=== PATIENT | female | born 1990 | race Caucasian/White ===

== ENCOUNTER 2021-10-27 05:15 | Emergency (ER) | payer OTHER ==
[~2021-10-27] VITALS: Ht 170.2 cm; Wt 59.1 kg
[2021-10-27 05:51] LABS: BASOPHILS # (AUTO) 0.1 X10'3 (0-0.2); BASOPHILS % (AUTO) 0.5 % (0-1); EOSINOPHILS % (AUTO) 0.1 % (0-6); HEMATOCRIT 45.6 % (35.0-45.0); HEMOGLOBIN 15.6 g/dl (12.0-16.0); LYMPHOCYTES # (AUTO) 1.4 X10'3 (1.1-4.8); LYMPHOCYTES % (AUTO) 9.7 % (21-51); MEAN CORPUSCULAR HEMOGLOBIN 31.9 PG (27.0-31.0); MEAN CORPUSCULAR HGB CONC 34.1 g/dL (33.0-36.5); MEAN CORPUSCULAR VOLUME 93.5 FL (78-98); MEAN PLATELET VOLUME 9.8 FL (7.4-10.4); MONOCYTES # (AUTO) 1.2 X10'3 (0-0.9); MONOCYTES % (AUTO) 8.5 % (2-12); NEUTROPHILS # (AUTO) 11.4 X10'3 (1.8-7.7); NEUTROPHILS % (AUTO) 81.2 % (42-75); PLATELET COUNT 280 X10'3 (140-440); RED BLOOD COUNT 4.87 X10'6 (4.20-5.60); RED CELL DISTRIBUTION WIDTH 15.2 % (11.5-14.5)
[2021-10-27 06:10] LABS: ALANINE AMINOTRANSFERASE 26 U/L (12-78); ALBUMIN 4.7 G/DL (3.4-5.0); ALBUMIN/GLOBULIN RATIO 1.2 (1.1-1.5); ALKALINE PHOSPHATASE 66 IU/L (46-116); ANION GAP 21 (8-16); ASPARTATE AMINO TRANSFERASE 32 U/L (10-37); BILIRUBIN,DIRECT 0.2 MG/DL (0-0.3); BILIRUBIN,TOTAL 0.7 MG/DL (0.1-1.0); BLOOD UREA NITROGEN 24 MG/DL (7-18); BUN/CREATININE RATIO 11.8 (6.6-38.0); CHLORIDE 97 MMOL/L (99-107); CREATININE 2.04 MG/DL (0.40-0.90); GLUCOSE 128 MG/DL (70-104); LIPASE 145 U/L (73-393); POTASSIUM 3.5 MMOL/L (3.5-5.1); SODIUM 134 MMOL/L (135-145); TOTAL CARBON DIOXIDE 16.2 MMOL/L (24-32); TOTAL PROTEIN 8.5 G/DL (6.4-8.2); eGFR 28 ML/MIN
[2021-10-27 06:19] LABS: CALCIUM 9.6 MG/DL (8.5-10.1)
--- NOTE | 2021-10-27 06:44 | NUR ---
pt requesting pain meds d/t abd pain. pt it restless in bed, appears uncomfortable. dr. triplett is requesting urine prior to giving pain meds to pt. pt informed.
[2021-10-27] MEDS ORDERED: normal saline 1000ML IV soln IV ONE (06:45)
--- NOTE | 2021-10-27 06:51 | NUR ---
pt up to bsc independently, unable to pee at this time d/t dehydration. requesting pain meds still, dr. triplett made aware that pt is in pain. will not order pain meds until pt has provided urine.
[2021-10-27 07:07] LABS: MAGNESIUM 2.3 MG/DL (1.5-2.4)
[2021-10-27 07:17] LABS: ETHANOL < 0.010 GM/DL (0.0-0.010)
[2021-10-27] MEDS ORDERED: normal saline 1000ML IV soln IVB ONE (07:20)
[2021-10-27] MEDS ORDERED: morphine 2 MG/ML inj. syringe IV ONE ×2 (07:35→11:35)
[2021-10-27 07:40] LABS: CLARITY,URINE CLOUDY (Clear); COLOR,URINE YELLOW (Yellow); GLUCOSE, URINE NEGATIVE (Neg); KETONES,URINE TRACE mg/dl (Neg); LEUKOCYTE ESTERASE ,URINE NEGATIVE (Neg); NITRITES, URINE NEGATIVE (Neg); OCCULT BLOOD,URINE NEGATIVE (Neg); PROTEIN,URINE 100 mg/dl (Neg); UROBILINOGEN,URINE 0.2 E.U/dL (0.2-1.0)
[2021-10-27 07:41] LABS: URINE HCG NEGATIVE (NEG)
[2021-10-27 07:47] LABS: UA COLLECTION TYPE CLN CATCH MIDSTREAM
[2021-10-27 07:51] LABS: BACTERIA,URINE FEW /HPF (Neg); MUCUS STRANDS FEW /LPF (Neg); RBC,URINE NONE SEEN /HPF (0-2); SQUAMOUS EPITHELIAL CELL,UR MODERATE /LPF (FEW)
[2021-10-27 07:52] LABS: CAL OXALATE CRYSTALS FEW /HPF (NEGATIVE); TRANSITIONAL EPI CELLS,URINE FEW /HPF
[2021-10-27 07:53] LABS: URINE AMPHETAMINE SCREEN NEGATIVE (Neg); URINE BARBITUATE SCREEN NEGATIVE (Neg); URINE BENZODIAZEPINES SCREEN NEGATIVE (Neg); URINE CANNABINOID SCREEN POSITIVE (Neg); URINE COCAINE SCREEN NEGATIVE (Neg); URINE METHADONE SCREEN NEGATIVE (Neg); URINE OPIATE SCREEN NEGATIVE (Neg); URINE PHENCYCLIDINE SCREEN NEGATIVE (Neg)
--- NOTE | 2021-10-27 08:00 | NUR ---
pt to CT
--- NOTE | 2021-10-27 08:12 | NUR ---
returned from CT
[2021-10-27] MEDS ORDERED: metroNIDAZOLE-Flagyl 500mg/NS 100 ML IV ONE (09:55)
[2021-10-27] MEDS ORDERED: piperacillin/tazo 3.375gm/50ml 50 ML IV ONE (09:55)
--- NOTE | 2021-10-27 10:15 | NUR ---
dr. triplett at bedside for pelvic exam with RN as oncology specialist
--- NOTE | 2021-10-27 11:00 | NUR ---
Us at bedside
--- NOTE | 2021-10-27 11:45 | NUR ---
pt medicated for abd pain 04/21.
[2021-10-27 11:58] LABS: ALANINE AMINOTRANSFERASE 26 U/L (12-78); ALBUMIN 3.8 G/DL (3.4-5.0); ALBUMIN/GLOBULIN RATIO 1.1 (1.1-1.5); ALKALINE PHOSPHATASE 52 IU/L (46-116); ANION GAP 13 (8-16); ASPARTATE AMINO TRANSFERASE 40 U/L (10-37); BILIRUBIN,TOTAL 0.5 MG/DL (0.1-1.0); BLOOD UREA NITROGEN 19 MG/DL (7-18); BUN/CREATININE RATIO 17.1 (6.6-38.0); CALCIUM 7.9 MG/DL (8.5-10.1); CHLORIDE 105 MMOL/L (99-107); CREATININE 1.11 MG/DL (0.40-0.90); GLUCOSE 98 MG/DL (70-104); LIPASE 108 U/L (73-393); POTASSIUM 3.5 MMOL/L (3.5-5.1); SODIUM 139 MMOL/L (135-145); TOTAL CARBON DIOXIDE 21.3 MMOL/L (24-32); TOTAL PROTEIN 7.3 G/DL (6.4-8.2); eGFR 57 ML/MIN
[2021-10-27] MEDS ORDERED: METR-159 PO (12:44)
[2021-10-27 13:53] VITALS: BP 102/63
== END 2021-10-27 13:57 | disposition home or self-care (01) ==
LOC: ER 05:16
DX: R10.84 Generalized abdominal pain (principal); N17.9 Acute kidney failure, unspecified; K59.00 Constipation, unspecified; F12.90 Cannabis use, unspecified, uncomplicated; Z72.89 Other problems related to lifestyle; Z79.2 Long term (current) use of antibiotics
CPT/HCPCS: 36415; 74176; 80048; 80053; 80076; 80305; 80320; 81001; 81025; 83605; 83690; 83735; 84145; 85025; 87040; 93975; 96365; 96367; 96375; 96376; 99285; J2270; J2543; J3490; J7030

== ENCOUNTER 2022-01-01 19:24 | Emergency (ER) | payer MEDICAID ==
[~2022-01-01] VITALS: Ht 170.2 cm; Wt 52.7 kg
[2022-01-01 20:17] LABS: BASOPHILS # (AUTO) 0.1 X10'3 (0-0.2); EOSINOPHILS # (AUTO) 0.1 X10'3 (0-0.9); EOSINOPHILS % (AUTO) 1.7 % (0-6); HEMATOCRIT 42.2 % (35.0-45.0); HEMOGLOBIN 14.1 g/dl (12.0-16.0); LYMPHOCYTES # (AUTO) 1.9 X10'3 (1.1-4.8); LYMPHOCYTES % (AUTO) 32.6 % (21-51); MEAN CORPUSCULAR HEMOGLOBIN 30.5 PG (27.0-31.0); MEAN CORPUSCULAR HGB CONC 33.4 g/dL (33.0-36.5); MEAN CORPUSCULAR VOLUME 91.6 FL (78-98); MEAN PLATELET VOLUME 9.5 FL (7.4-10.4); MONOCYTES # (AUTO) 0.6 X10'3 (0-0.9); MONOCYTES % (AUTO) 10.9 % (2-12); NEUTROPHILS # (AUTO) 3.1 X10'3 (1.8-7.7); NEUTROPHILS % (AUTO) 53.8 % (42-75); PLATELET COUNT 232 X10'3 (140-440); RED BLOOD COUNT 4.61 X10'6 (4.20-5.60); RED CELL DISTRIBUTION WIDTH 15.9 % (11.5-14.5); WHITE BLOOD COUNT 5.8 X10'3 (4.5-11.0)
[2022-01-01 20:20] LABS: CLARITY,URINE CLEAR (Clear); GLUCOSE, URINE NEGATIVE (Neg); KETONES,URINE 15 mg/dl (Neg); LEUKOCYTE ESTERASE ,URINE NEGATIVE (Neg); NITRITES, URINE NEGATIVE (Neg); OCCULT BLOOD,URINE NEGATIVE (Neg); PH,URINE 5.5 (4.8-8.0); PROTEIN,URINE 30 mg/dl (Neg); UROBILINOGEN,URINE 0.2 E.U/dL (0.2-1.0)
[2022-01-01 20:21] LABS: COLOR,URINE DARK YELLOW (Yellow); UA COLLECTION TYPE CLN CATCH MIDSTREAM
[2022-01-01 20:27] LABS: URINE HCG NEGATIVE (NEG)
[2022-01-01 20:30] LABS: ALANINE AMINOTRANSFERASE 23 U/L (12-78); ALBUMIN 4.3 G/DL (3.4-5.0); ALBUMIN/GLOBULIN RATIO 1.2 (1.1-1.5); ALKALINE PHOSPHATASE 60 IU/L (46-116); ANION GAP 16 (8-16); ASPARTATE AMINO TRANSFERASE 20 U/L (10-37); BILIRUBIN,TOTAL 0.8 MG/DL (0.1-1.0); BLOOD UREA NITROGEN 9 MG/DL (7-18); BUN/CREATININE RATIO 11.1 (6.6-38.0); CALCIUM 9.5 MG/DL (8.5-10.1); CHLORIDE 102 MMOL/L (99-107); CREATININE 0.81 MG/DL (0.40-0.90); GLUCOSE 82 MG/DL (70-104); POTASSIUM 3.6 MMOL/L (3.5-5.1); SODIUM 142 MMOL/L (135-145); TOTAL CARBON DIOXIDE 24.1 MMOL/L (24-32); TOTAL PROTEIN 7.8 G/DL (6.4-8.2); eGFR 81 ML/MIN
[2022-01-01 20:32] LABS: BACTERIA,URINE 1+ /HPF (Neg); MUCUS STRANDS FEW /LPF (Neg); RBC,URINE 0-2 /HPF (0-2); SQUAMOUS EPITHELIAL CELL,UR FEW /LPF (FEW); WBC,URINE 0-4 /HPF (0-4)
[2022-01-01 20:33] LABS: HYALINE CASTS 0-3 /LPF (NEGATIVE)
--- NOTE | 2022-01-01 21:50 | NUR ---
PATIENT DENIES HOME MEDICATIONS.
[2022-01-01] MEDS ORDERED: HYDROcodone/acetaminophen 5mg/325mg tablet PO ONE (22:25)
[2022-01-01] MEDS ORDERED: ondansetron 4mg rapidly disintigrating tab PO ONE (22:25)
[2022-01-02 00:30] VITALS: BP 12/75
== END 2022-01-02 00:35 | disposition home or self-care (01) ==
LOC: ER 19:25
DX: K57.90 Diverticulosis of intestine, part unspecified, without perforation or abscess without bleeding (principal); R11.2 Nausea with vomiting, unspecified; R10.84 Generalized abdominal pain; F32.A Depression, unspecified; F12.90 Cannabis use, unspecified, uncomplicated; Z72.89 Other problems related to lifestyle
CPT/HCPCS: 36415; 74176; 80053; 81001; 81025; 85025; 99284

== ENCOUNTER 2022-02-18 07:34 | Emergency (ER) | payer OTHER, MEDICAID ==
[~2022-02-18] VITALS: Ht 170.2 cm; Wt 50.0 kg
[2022-02-18] MEDS ORDERED: ringers solution, lacted 1,000 ML IV ONE (08:00)
[2022-02-18] MEDS ORDERED: morphine 4 MG/ML inj SYRINge IV ONE (08:00)
[2022-02-18] MEDS ORDERED: ondansetron/PF 4mg/2ml inj IV ONE (08:00)
[2022-02-18 08:07] LABS: URINE HCG NEGATIVE (NEG)
[2022-02-18 08:12] LABS: BASOPHILS # (AUTO) 0.1 X10'3 (0-0.2); BASOPHILS % (AUTO) 0.7 % (0-1); EOSINOPHILS # (AUTO) 0.1 X10'3 (0-0.9); EOSINOPHILS % (AUTO) 1.2 % (0-6); HEMATOCRIT 36.1 % (35.0-45.0); HEMOGLOBIN 11.8 g/dl (12.0-16.0); LYMPHOCYTES # (AUTO) 1.3 X10'3 (1.1-4.8); LYMPHOCYTES % (AUTO) 13.5 % (21-51); MEAN CORPUSCULAR HEMOGLOBIN 30.1 PG (27.0-31.0); MEAN CORPUSCULAR HGB CONC 32.7 g/dL (33.0-36.5); MEAN CORPUSCULAR VOLUME 92.1 FL (78-98); MEAN PLATELET VOLUME 9.4 FL (7.4-10.4); MONOCYTES # (AUTO) 0.9 X10'3 (0-0.9); NEUTROPHILS # (AUTO) 7.2 X10'3 (1.8-7.7); NEUTROPHILS % (AUTO) 75.6 % (42-75); PLATELET COUNT 251 X10'3 (140-440); RED BLOOD COUNT 3.91 X10'6 (4.20-5.60); RED CELL DISTRIBUTION WIDTH 17.6 % (11.5-14.5); WHITE BLOOD COUNT 9.5 X10'3 (4.5-11.0)
[2022-02-18 08:19] LABS: ALANINE AMINOTRANSFERASE 21 U/L (12-78); ALBUMIN/GLOBULIN RATIO 1.3 (1.1-1.5); ALKALINE PHOSPHATASE 50 IU/L (46-116); AMYLASE 78 U/L (25-115); ANION GAP 13 (8-16); ASPARTATE AMINO TRANSFERASE 24 U/L (10-37); BILIRUBIN,TOTAL 0.4 MG/DL (0.1-1.0); BLOOD UREA NITROGEN 9 MG/DL (7-18); BUN/CREATININE RATIO 12.5 (6.6-38.0); CALCIUM 8.4 MG/DL (8.5-10.1); CHLORIDE 109 MMOL/L (99-107); CREATININE 0.72 MG/DL (0.40-0.90); GLUCOSE 106 MG/DL (70-104); LIPASE 211 U/L (73-393); POTASSIUM 3.2 MMOL/L (3.5-5.1); SODIUM 146 MMOL/L (135-145); TOTAL CARBON DIOXIDE 24.4 MMOL/L (24-32); TOTAL PROTEIN 7.1 G/DL (6.4-8.2); eGFR > 90 ML/MIN
[2022-02-18] MEDS ORDERED: metoclopramide 5 mg/ml inj IV ONE (09:00)
[2022-02-18 09:02] LABS: CLARITY,URINE CLOUDY (Clear); COLOR,URINE YELLOW (Yellow); GLUCOSE, URINE NEGATIVE (Neg); KETONES,URINE 15 mg/dl (Neg); LEUKOCYTE ESTERASE ,URINE NEGATIVE (Neg); NITRITES, URINE NEGATIVE (Neg); OCCULT BLOOD,URINE LARGE (Neg); PH,URINE 6.5 (4.8-8.0); PROTEIN,URINE TRACE mg/dl (Neg); UROBILINOGEN,URINE 0.2 E.U/dL (0.2-1.0)
[2022-02-18] MEDS ORDERED: LORazepam 2 mg/ml vial IV ONE (09:05)
[2022-02-18 09:07] LABS: UA COLLECTION TYPE CLN CATCH MIDSTREAM
[2022-02-18 09:15] LABS: MUCUS STRANDS MODERATE /LPF (Neg); RBC,URINE 50-100 /HPF (0-2); SQUAMOUS EPITHELIAL CELL,UR MODERATE /LPF (FEW)
[2022-02-18 09:16] LABS: WBC,URINE 0-4 /HPF (0-4)
[2022-02-18 09:18] LABS: BACTERIA,URINE 1+ /HPF (Neg)
[2022-02-18 09:19] LABS: AMORPHOUS PHOSPHATES 2+
--- NOTE | 2022-02-18 09:42 | NUR ---
Call to CT at this time to inform them Patient is now more comfortable after medication administration (see EMAR).
--- NOTE | 2022-02-18 10:04 | NUR ---
TO CT AT THIS TIME.
[2022-02-18] MEDS ORDERED: MELO-102 PO (11:36)
[2022-02-18 11:47] VITALS: BP 111/69
[2022-02-19] MEDS ORDERED: iohexol 300mg/ml 100ml inj. ONE (10:00)
== END 2022-02-18 11:49 | disposition home or self-care (01) ==
LOC: ER 07:35
DX: N94.89 Other specified conditions associated with female genital organs and menstrual cycle (principal); R10.84 Generalized abdominal pain; R11.0 Nausea; F32.A Depression, unspecified; F12.90 Cannabis use, unspecified, uncomplicated; Z72.89 Other problems related to lifestyle; Z79.899 Other long term (current) drug therapy
CPT/HCPCS: 36415; 74177; 80053; 81001; 81025; 82150; 83690; 85025; 96361; 96374; 96375; 99285; J2060; J2270; J2405; J2765; J7120; Q9967

== ENCOUNTER 2022-03-22 07:48 | Emergency (ER) | payer MEDICAID, OTHER ==
[~2022-03-22] VITALS: Ht 170.2 cm; Wt 52.7 kg
[~2022-03-22 07:48] MED LIST: MELO-102 PO
[2022-03-22 08:27] LABS: BASOPHILS # (AUTO) 0.1 X10'3 (0-0.2); BASOPHILS % (AUTO) 0.7 % (0-1); EOSINOPHILS # (AUTO) 0.1 X10'3 (0-0.9); EOSINOPHILS % (AUTO) 1.2 % (0-6); HEMATOCRIT 38.5 % (35.0-45.0); HEMOGLOBIN 12.7 g/dl (12.0-16.0); LYMPHOCYTES # (AUTO) 1.8 X10'3 (1.1-4.8); MEAN CORPUSCULAR HEMOGLOBIN 30.5 PG (27.0-31.0); MEAN CORPUSCULAR VOLUME 92.7 FL (78-98); MEAN PLATELET VOLUME 8.8 FL (7.4-10.4); MONOCYTES # (AUTO) 0.4 X10'3 (0-0.9); MONOCYTES % (AUTO) 5.2 % (2-12); NEUTROPHILS # (AUTO) 5.8 X10'3 (1.8-7.7); NEUTROPHILS % (AUTO) 70.9 % (42-75); PLATELET COUNT 269 X10'3 (140-440); RED BLOOD COUNT 4.15 X10'6 (4.20-5.60); RED CELL DISTRIBUTION WIDTH 17.3 % (11.5-14.5); WHITE BLOOD COUNT 8.2 X10'3 (4.5-11.0)
[2022-03-22] MEDS ORDERED: normal saline 1000ML IV soln IVB ONE ×2 (08:40→11:10)
[2022-03-22] MEDS ORDERED: metoclopramide 5 mg/ml inj IV ONE (08:40)
[2022-03-22] MEDS ORDERED: diphenhydrAMINE 50 mg/ml inj IV ONE (08:40)
[2022-03-22 08:42] LABS: ALANINE AMINOTRANSFERASE 19 U/L (12-78); ALBUMIN 3.9 G/DL (3.4-5.0); ALBUMIN/GLOBULIN RATIO 1.2 (1.1-1.5); ALKALINE PHOSPHATASE 49 IU/L (46-116); ANION GAP 9 (8-16); ASPARTATE AMINO TRANSFERASE 21 U/L (10-37); BILIRUBIN,TOTAL 0.4 MG/DL (0.1-1.0); BLOOD UREA NITROGEN 10 MG/DL (7-18); BUN/CREATININE RATIO 12.3 (6.6-38.0); CALCIUM 8.3 MG/DL (8.5-10.1); CHLORIDE 106 MMOL/L (99-107); CREATININE 0.81 MG/DL (0.40-0.90); GLUCOSE 107 MG/DL (70-104); LIPASE 403 U/L (73-393); SODIUM 142 MMOL/L (135-145); TOTAL PROTEIN 7.2 G/DL (6.4-8.2); eGFR 81 ML/MIN
[2022-03-22] MEDS ORDERED: ketorolac tromethamine 15mg/ml inj. IV ONE (08:50)
[2022-03-22] MEDS ORDERED: morphine 4 MG/ML inj SYRINge IV ONE (08:50)
[2022-03-22 09:00] LABS: ETHANOL 0.201 GM/DL (0.0-0.010)
[2022-03-22] MEDS ORDERED: haloperidol lactate 5mg/ml inj IV ONE (10:00)
[2022-03-22] MEDS ORDERED: POTASSIUM BICARB 20meq eff tab 20 MEQ TABLET.EFF PO SCH (13:05)
[2022-03-22 13:11] LABS: URINE HCG NEGATIVE (NEG)
[2022-03-22 13:12] LABS: CLARITY,URINE CLEAR (Clear); COLOR,URINE YELLOW (Yellow); GLUCOSE, URINE NEGATIVE (Neg); KETONES,URINE TRACE mg/dl (Neg); LEUKOCYTE ESTERASE ,URINE NEGATIVE (Neg); NITRITES, URINE NEGATIVE (Neg); OCCULT BLOOD,URINE NEGATIVE (Neg); PH,URINE 6.5 (4.8-8.0); PROTEIN,URINE NEGATIVE (Neg); UROBILINOGEN,URINE 0.2 E.U/dL (0.2-1.0)
[2022-03-22 13:13] LABS: UA COLLECTION TYPE CLN CATCH MIDSTREAM
[2022-03-22 13:29] LABS: URINE AMPHETAMINE SCREEN NEGATIVE (Neg); URINE BARBITUATE SCREEN NEGATIVE (Neg); URINE BENZODIAZEPINES SCREEN NEGATIVE (Neg); URINE CANNABINOID SCREEN POSITIVE (Neg); URINE COCAINE SCREEN NEGATIVE (Neg); URINE METHADONE SCREEN NEGATIVE (Neg); URINE OPIATE SCREEN POSITIVE (Neg); URINE PHENCYCLIDINE SCREEN NEGATIVE (Neg)
[2022-03-22 13:30] VITALS: BP 109/83
--- NOTE | 2022-03-22 13:40 | NUR ---
PT PROVIDED WITH WIPES, STATES SHE HAD A BM AND NEEDS TO CLEAN UP. PT PLACED OWN CLOTHING BACK ON, PIV REMOVED. PT GIVEN ORAL POTASSIUM.
== END 2022-03-22 14:21 | disposition home or self-care (01) ==
LOC: ER 07:48
DX: K29.20 Alcoholic gastritis without bleeding (principal); F10.10 Alcohol abuse, uncomplicated; F32.9 Major depressive disorder, single episode, unspecified; F12.90 Cannabis use, unspecified, uncomplicated; Z79.899 Other long term (current) drug therapy; Y90.0 Blood alcohol level of less than 20 mg/100 ml
CPT/HCPCS: 36415; 80053; 80305; 80320; 81003; 81025; 83690; 85025; 96361; 96374; 96375; 99284; J1200; J1885; J2270; J2765; J7030; A4353

== ENCOUNTER 2022-07-29 17:39 | Emergency (ER) | payer MEDICAID ==
[~2022-07-29] VITALS: Ht 170.2 cm; Wt 55.5 kg
[2022-07-29 18:08] LABS: BASOPHILS % (AUTO) 0.6 % (0-1); EOSINOPHILS # (AUTO) 0.1 X10'3 (0-0.9); EOSINOPHILS % (AUTO) 1.3 % (0-6); HEMATOCRIT 42.1 % (35.0-45.0); HEMOGLOBIN 14.1 g/dl (12.0-16.0); LYMPHOCYTES # (AUTO) 1.4 X10'3 (1.1-4.8); LYMPHOCYTES % (AUTO) 16.8 % (21-51); MEAN CORPUSCULAR HGB CONC 33.6 g/dL (33.0-36.5); MEAN CORPUSCULAR VOLUME 92.3 FL (78-98); MEAN PLATELET VOLUME 9.1 FL (7.4-10.4); MONOCYTES # (AUTO) 1.3 X10'3 (0-0.9); MONOCYTES % (AUTO) 15.6 % (2-12); NEUTROPHILS # (AUTO) 5.6 X10'3 (1.8-7.7); NEUTROPHILS % (AUTO) 65.7 % (42-75); PLATELET COUNT 253 X10'3 (140-440); RED BLOOD COUNT 4.56 X10'6 (4.20-5.60); RED CELL DISTRIBUTION WIDTH 18.4 % (11.5-14.5); WHITE BLOOD COUNT 8.5 X10'3 (4.5-11.0)
[2022-07-29 18:23] LABS: ALANINE AMINOTRANSFERASE 40 U/L (12-78); ALBUMIN 4.4 G/DL (3.4-5.0); ALBUMIN/GLOBULIN RATIO 1.2 (1.1-1.5); ALKALINE PHOSPHATASE 61 IU/L (46-116); ANION GAP 13 (8-16); ASPARTATE AMINO TRANSFERASE 41 U/L (10-37); BILIRUBIN,TOTAL 0.5 MG/DL (0.1-1.0); BLOOD UREA NITROGEN 19 MG/DL (7-18); BUN/CREATININE RATIO 22.9 (6.6-38.0); CALCIUM 9.5 MG/DL (8.5-10.1); CHLORIDE 99 MMOL/L (99-107); CREATININE 0.83 MG/DL (0.40-0.90); GLUCOSE 133 MG/DL (70-104); LIPASE 171 U/L (73-393); SODIUM 137 MMOL/L (135-145); TOTAL CARBON DIOXIDE 25.3 MMOL/L (24-32); TOTAL PROTEIN 8.2 G/DL (6.4-8.2); eGFR 79 ML/MIN
[2022-07-29 18:29] LABS: POTASSIUM 2.9 MMOL/L (3.5-5.1)
[2022-07-29] MEDS ORDERED: ringers solution, lacted 1,000 ML IV ONE (19:20)
[2022-07-29] MEDS ORDERED: ondansetron/PF 4mg/2ml inj IV ONE (19:20)
[2022-07-29] MEDS ORDERED: morphine 4 MG/ML inj SYRINge IV ONE (19:20)
[2022-07-29] MEDS ORDERED: potassium Cl 20 mEq SR tablet PO STA (20:38)
[2022-07-29 21:34] LABS: CLARITY,URINE SLIGHTLY CLOUDY (Clear); COLOR,URINE YELLOW (Yellow); GLUCOSE, URINE NEGATIVE (Neg); KETONES,URINE 40 mg/dl (Neg); LEUKOCYTE ESTERASE ,URINE NEGATIVE (Neg); NITRITES, URINE NEGATIVE (Neg); OCCULT BLOOD,URINE NEGATIVE (Neg); PROTEIN,URINE 30 mg/dl (Neg); UROBILINOGEN,URINE 0.2 E.U/dL (0.2-1.0)
[2022-07-29 21:38] LABS: URINE HCG NEGATIVE (NEG)
[2022-07-29 21:42] LABS: UA COLLECTION TYPE CLN CATCH MIDSTREAM
[2022-07-29 21:45] LABS: BACTERIA,URINE FEW /HPF (Neg); CAL OXALATE CRYSTALS 2+ /HPF (NEGATIVE); MUCUS STRANDS NONE SEEN /LPF (Neg); RBC,URINE 0-2 /HPF (0-2); SQUAMOUS EPITHELIAL CELL,UR FEW /LPF (FEW); WBC,URINE 0-4 /HPF (0-4)
[2022-07-29] MEDS ORDERED: iohexol 300mg/ml 100ml inj. ONE (21:54)
[2022-07-29] MEDS ORDERED: metoclopramide 5 mg/ml inj IV ONE (22:15)
[2022-07-29] MEDS ORDERED: ketorolac trometh. 30mg/ml inj. IV ONE (22:15)
[2022-07-29] MEDS ORDERED: HYDROcodone/acetaminophen 5mg/325mg tablet PO ONE (23:05)
[2022-07-29] MEDS ORDERED: HYDR-3965 PO (23:06)
[2022-07-29 23:18] VITALS: BP 123/72
== END 2022-07-29 23:20 | disposition home or self-care (01) ==
LOC: ER 17:40
DX: N80.9 Endometriosis, unspecified (principal); F12.90 Cannabis use, unspecified, uncomplicated
CPT/HCPCS: 36415; 76856; 80053; 81001; 81025; 83690; 85025; 93005; 93976; 96361; 96374; 96375; 99285; J1885; J2270; J2405; J2765; J3490; J7120; Q9967

== ENCOUNTER 2022-09-14 06:26 | Inpatient (IN) | payer MEDICAID ==
[~2022-09-14] VITALS: Ht 170.2 cm; Wt 53.6 kg
--- NOTE | 2022-09-14 06:50 | NUR ---
PT HR INCREASED TO 133 AT END OF TRIAGE. RADIAL PULS MATCHED MOITOR READING. PT DENIES ANY CARDIAC HX. PT DENIES DRUG, ETOH USE. STAT ECG ORDERED, PT PLACED IN ROOM FOR WORKUP AND MONITORING.
[2022-09-14 08:40] LABS: BASOPHILS # (AUTO) 0.1 X10'3 (0-0.2); BASOPHILS % (AUTO) 0.8 % (0-1); EOSINOPHILS % (AUTO) 0.1 % (0-6); HEMATOCRIT 46.3 % (35.0-45.0); HEMOGLOBIN 15.1 g/dl (12.0-16.0); LYMPHOCYTES # (AUTO) 1.7 X10'3 (1.1-4.8); LYMPHOCYTES % (AUTO) 9.4 % (21-51); MEAN CORPUSCULAR HEMOGLOBIN 30.2 PG (27.0-31.0); MEAN CORPUSCULAR HGB CONC 32.7 g/dL (33.0-36.5); MEAN CORPUSCULAR VOLUME 92.6 FL (78-98); MEAN PLATELET VOLUME 9.7 FL (7.4-10.4); MONOCYTES % (AUTO) 10.9 % (2-12); NEUTROPHILS # (AUTO) 14.4 X10'3 (1.8-7.7); NEUTROPHILS % (AUTO) 78.8 % (42-75); PLATELET COUNT 290 X10'3 (140-440); RED CELL DISTRIBUTION WIDTH 17.3 % (11.5-14.5); WHITE BLOOD COUNT 18.3 X10'3 (4.5-11.0)
[2022-09-14 08:58] LABS: BLOOD UREA NITROGEN 32 MG/DL (7-18); BUN/CREATININE RATIO 7.4 (6.6-38.0); CHLORIDE 93 MMOL/L (99-107); GLUCOSE 126 MG/DL (70-104); POTASSIUM 3.7 MMOL/L (3.5-5.1); SODIUM 133 MMOL/L (135-145); eGFR 12 ML/MIN
[2022-09-14 09:05] LABS: ALANINE AMINOTRANSFERASE 38 U/L (12-78); ALBUMIN 5.2 G/DL (3.4-5.0); ALBUMIN/GLOBULIN RATIO 1.3 (1.1-1.5); ALKALINE PHOSPHATASE 70 IU/L (46-116); ANION GAP 21 (8-16); ASPARTATE AMINO TRANSFERASE 38 U/L (10-37); CALCIUM 10.4 MG/DL (8.5-10.1); LIPASE 269 U/L (73-393); TOTAL CARBON DIOXIDE 19.1 MMOL/L (24-32); TOTAL PROTEIN 9.3 G/DL (6.4-8.2)
[2022-09-14] MEDS ORDERED: normal saline 1000ML IV soln IV ONE (09:50)
[2022-09-14] MEDS ORDERED: acetaminophen 325mg tablet PO PRN (10:50)
[2022-09-14] MEDS ORDERED: potassium Cl 40MEQ/1/2NS 520ml 520 ML IV PRN (10:50)
[2022-09-14] MEDS ORDERED: ondansetron/PF 4mg/2ml inj IV PRN (10:50)
[2022-09-14] MEDS ORDERED: bisacodyl 10mg suppository rectal RC PRN (10:50)
[2022-09-14] MEDS ORDERED: magnesium Cl slow-release 64mg tablet PO PRN (10:50)
[2022-09-14] MEDS ORDERED: magnesium 4gm in 100ml NS 100 ML IV PRN (10:50)
[2022-09-14] MEDS ORDERED: mag hydrox/Alum hydrox/simeth 30ml oral suspension PO PRN (10:50)
[2022-09-14] MEDS ORDERED: potassium Cl 20 mEq SR tablet PO PRN (10:50)
[2022-09-14] MEDS ORDERED: HYDROcodone/acetaminophen 5mg/325mg tablet PO PRN (10:50)
[2022-09-14 11:03] LABS: CKMB RELATIVE INDEX 0.7 RATIO (0-2.5); CREATINE KINASE 449 U/L (26-192)
[2022-09-14] MEDS ORDERED: normal saline 1000ml 1,000 ML IV SCH (11:10)
[2022-09-14] MEDS: morphine 2 MG/ML inj. syringe IV PRN ×2 (11:30→14:11)
[2022-09-14 11:34] LABS: MAGNESIUM 2.8 MG/DL (1.5-2.4)
[2022-09-14 11:41] LABS: CLARITY,URINE TURBID (Clear); COLOR,URINE BROWN (Yellow); GLUCOSE, URINE NEGATIVE (Neg); KETONES,URINE TRACE mg/dl (Neg); LEUKOCYTE ESTERASE ,URINE TRACE (Neg); NITRITES, URINE NEGATIVE (Neg); OCCULT BLOOD,URINE LARGE (Neg); PROTEIN,URINE 100 mg/dl (Neg)
[2022-09-14 11:43] LABS: URINE HCG NEGATIVE (NEG)
[2022-09-14 11:44] LABS: UA COLLECTION TYPE STRAIGHT CATH
[2022-09-14 11:50] LABS: BACTERIA,URINE 2+ /HPF (Neg); FINE GRANULAR CAST 0-3 /LPF (NEGATIVE); MUCUS STRANDS NONE SEEN /LPF (Neg); RBC,URINE TNTC /HPF (0-2); SQUAMOUS EPITHELIAL CELL,UR MODERATE /LPF (FEW)
[2022-09-14 11:51] LABS: COARSE GRANULAR CAST 0-3 /LPF (NEGATIVE)
[2022-09-14 12:23] LABS: URINE AMPHETAMINE SCREEN NEGATIVE (Neg); URINE BARBITUATE SCREEN NEGATIVE (Neg); URINE BENZODIAZEPINES SCREEN NEGATIVE (Neg); URINE CANNABINOID SCREEN POSITIVE (Neg); URINE COCAINE SCREEN NEGATIVE (Neg); URINE METHADONE SCREEN NEGATIVE (Neg); URINE OPIATE SCREEN NEGATIVE (Neg); URINE PHENCYCLIDINE SCREEN NEGATIVE (Neg)
[2022-09-14] MEDS: HYDROcodone/acetaminophen 10/325mg tab PO PRN ×2 (13:03→23:04)
[2022-09-14] MEDS ORDERED: haloperidol 5mg tablet PO PRN (13:40)
[2022-09-14] MEDS ORDERED: NAPR-996 PO (13:44)
[2022-09-14] MEDS: LORazepam 1 MG tablet PO PRN ×2 (15:42→21:04)
--- NOTE | 2022-09-14 16:23 | NUR ---
RN gave report to Katalina on surgical unit. Pt is stable, will transfer shortly.
--- NOTE | 2022-09-14 17:59 | NUR ---
Bladder scan done due to low output, patient is not retaining urine.3ml in bladder
[2022-09-14 18:00] VITALS: BP 115/81
--- NOTE | 2022-09-14 18:30 | NUR ---
Report given to Suzanna HEDRICK, patient resting comfortably in bed, Fluids dc'd by Dr Samuel.
--- NOTE | 2022-09-14 18:57 | NUR ---
Patient in room [facility] 358. I have received report from FLORIDALMA SAAVEDRA and had the opportunity to ask questions and assume patient care. Addendum: 09/14/22 at 1858 by Suzanna Richardson RN Amended: Links added.
[2022-09-14 20:00] VITALS: BP_SYST 118; BP_SYST 139; BP_SYST 143; BP_DIAS 100; BP_DIAS 90; BP_DIAS 94
[2022-09-14] MEDS: K and/or MAG REPLACEMENT MC SCH (20:00)
[2022-09-14] MEDS: docusate sod 100mg capsule PO SCH (21:04)
[2022-09-14] MEDS: heparin, porcine 5000 units/ml vial SQ SCH (21:05)
[2022-09-14] MEDS ORDERED: sodium bicarbonate (8.4%) inj. 75 MEQ in sodium chloride 0.45% 1,000 ML IV SCH (21:45)
[2022-09-14 22:00] VITALS: BP 141/97
--- NOTE | 2022-09-14 22:45 | NUR ---
pictures taken of pt's back and right heel. optifoam to 2 open wounds on back & foam dressing to reddened open are a after cleaning wounds with betadyne foam dressing applied and taped in place and socks on. then pt assisted to brp to void ua obtained and sent out to lab.
[2022-09-14 23:41] LABS: TOTAL PROTEIN,URINE RANDOM 91.6 MG/DL
[2022-09-15 06:00] VITALS: BP 116/74
[2022-09-15 06:19] LABS: BASOPHILS % (AUTO) 0.5 % (0-1); EOSINOPHILS # (AUTO) 0.1 X10'3 (0-0.9); EOSINOPHILS % (AUTO) 1.1 % (0-6); HEMATOCRIT 36.3 % (35.0-45.0); HEMOGLOBIN 12.3 g/dl (12.0-16.0); LYMPHOCYTES # (AUTO) 1.7 X10'3 (1.1-4.8); LYMPHOCYTES % (AUTO) 19.5 % (21-51); MEAN CORPUSCULAR HEMOGLOBIN 31.1 PG (27.0-31.0); MEAN CORPUSCULAR HGB CONC 33.9 g/dL (33.0-36.5); MEAN CORPUSCULAR VOLUME 91.9 FL (78-98); MEAN PLATELET VOLUME 9.6 FL (7.4-10.4); MONOCYTES # (AUTO) 0.9 X10'3 (0-0.9); MONOCYTES % (AUTO) 10.3 % (2-12); NEUTROPHILS # (AUTO) 5.9 X10'3 (1.8-7.7); NEUTROPHILS % (AUTO) 68.6 % (42-75); PLATELET COUNT 179 X10'3 (140-440); RED BLOOD COUNT 3.95 X10'6 (4.20-5.60); RED CELL DISTRIBUTION WIDTH 17.3 % (11.5-14.5); WHITE BLOOD COUNT 8.7 X10'3 (4.5-11.0)
[2022-09-15 06:29] LABS: ALANINE AMINOTRANSFERASE 30 U/L (12-78); ALBUMIN 3.5 G/DL (3.4-5.0); ALBUMIN/GLOBULIN RATIO 1.1 (1.1-1.5); ALKALINE PHOSPHATASE 51 IU/L (46-116); AMYLASE 50 U/L (25-115); ANION GAP 10 (8-16); ASPARTATE AMINO TRANSFERASE 29 U/L (10-37); BILIRUBIN,TOTAL 0.9 MG/DL (0.1-1.0); BLOOD UREA NITROGEN 26 MG/DL (7-18); BUN/CREATININE RATIO 18.8 (6.6-38.0); CALCIUM 8.3 MG/DL (8.5-10.1); CHLORIDE 95 MMOL/L (99-107); CREATININE 1.38 MG/DL (0.40-0.90); GLUCOSE 102 MG/DL (70-104); LIPASE 243 U/L (73-393); MAGNESIUM 2.6 MG/DL (1.5-2.4); SODIUM 130 MMOL/L (135-145); TOTAL CARBON DIOXIDE 24.9 MMOL/L (24-32); TOTAL PROTEIN 6.7 G/DL (6.4-8.2); eGFR 44 ML/MIN
--- NOTE | 2022-09-15 06:46 | NUR ---
Problems reprioritized. Patient report given, questions answered & plan of care reviewed with FLORIDALMA BRAR. Addendum: 09/15/22 at 0646 by Suzanna Richardson RN Amended: Links added.
[2022-09-15 06:52] LABS: POTASSIUM 2.7 MMOL/L (3.5-5.1)
--- NOTE | 2022-09-15 06:55 | NUR ---
Patient in room TER[facility] 358. I have received report from shakeel pena and had the opportunity to ask questions and assume patient care. Addendum: 09/15/22 at 0656 by Jalyn Mendes RN renea pena
--- NOTE | 2022-09-15 07:19 | NUR ---
per dr begum it is ok to replace pt per protocol for K of 2.7.
--- NOTE | 2022-09-15 07:32 | NUR ---
Malnutrition/wound/renal consults: Pt admit DX acute renal failure hx N/V 2-3 days HAND MODEL, endometriosis on NSAIDS, and alcoholism per EMR. Pt reports 24-33 pound wt loss w/ decreased intake HAND MODEL. Pending scaled wt this admit though current reported wt up from standing scaled wt ER visit March this year of 52.73kg. Pt prior ER visits reported wt hx stable at borderline underweight status. Pt w/ normal strength, no edema, skin intact outside bruises/abrasions, and PO 75% first renal meal last night per EMR. Pt lacks minimum malnutrition criteria at this time. RD d/w RN regarding liberalizing to regular diet if physician agreeable given serum Na 130, K 2.7, Cl 95, Phos WNL. Noted pt hx etoh w/ MVI to start today but thiamine/folic acid not to start until 09/19 in EMR; NAVNEET d/w RN regarding thiamine/folic acid to start today if physician agreeable. RN to discuss above w/ . Addendum: 09/15/22 at [address] Amended: Links added.
[2022-09-15 08:00] VITALS: BP_SYST 117; BP_SYST 121; BP_SYST 125; BP_DIAS 78; BP_DIAS 85
[2022-09-15] MEDS: K and/or MAG REPLACEMENT MC SCH ×2 (08:00→20:00)
[2022-09-15] MEDS: multivitamins, therapeutics tablet PO SCH (08:59)
[2022-09-15] MEDS: docusate sod 100mg capsule PO SCH ×2 (08:59→19:58)
[2022-09-15] MEDS: potassium Cl 20 mEq SR tablet PO PRN ×3 (09:00→20:01)
[2022-09-15] MEDS: heparin, porcine 5000 units/ml vial SQ SCH ×2 (09:01→19:58)
[2022-09-15] MEDS: HYDROcodone/acetaminophen 10/325mg tab PO PRN ×2 (09:10→20:02)
[2022-09-15 10:00] VITALS: BP 121/78
[2022-09-15] MEDS: LORazepam 1 MG tablet PO PRN (12:15)
[2022-09-15] MEDS ORDERED: magnesium hydroxide 30ml (MOM) UD suspension PO PRN (14:30)
[2022-09-15 18:00] VITALS: BP 117/79
[2022-09-15 20:00] VITALS: BP_SYST 106; BP_SYST 107; BP_SYST 114; BP_DIAS 71; BP_DIAS 74; BP_DIAS 77
[2022-09-15 22:00] VITALS: BP 107/74
[2022-09-16 02:14] LABS: ALANINE AMINOTRANSFERASE 31 U/L (12-78); ALBUMIN 3.5 G/DL (3.4-5.0); ALBUMIN/GLOBULIN RATIO 1.1 (1.1-1.5); ALKALINE PHOSPHATASE 50 IU/L (46-116); AMYLASE 49 U/L (25-115); ANION GAP 9 (8-16); ASPARTATE AMINO TRANSFERASE 26 U/L (10-37); BILIRUBIN,TOTAL 0.5 MG/DL (0.1-1.0); BLOOD UREA NITROGEN 19 MG/DL (7-18); BUN/CREATININE RATIO 22.9 (6.6-38.0); CALCIUM 8.5 MG/DL (8.5-10.1); CHLORIDE 101 MMOL/L (99-107); CREATININE 0.83 MG/DL (0.40-0.90); GLUCOSE 93 MG/DL (70-104); LIPASE 217 U/L (73-393); MAGNESIUM 2.5 MG/DL (1.5-2.4); POTASSIUM 4.2 MMOL/L (3.5-5.1); SODIUM 136 MMOL/L (135-145); TOTAL CARBON DIOXIDE 25.7 MMOL/L (24-32); TOTAL PROTEIN 6.8 G/DL (6.4-8.2); eGFR 79 ML/MIN
--- NOTE | 2022-09-16 03:00 | NUR ---
Patient in room [facility] 358. I have received report from MAYKEL and had the opportunity to ask questions and assume patient care.
--- NOTE | 2022-09-16 03:02 | NUR ---
Problems reprioritized. Patient report given, questions answered & plan of care reviewed with annabella pena.
[2022-09-16] MEDS: HYDROcodone/acetaminophen 10/325mg tab PO PRN (05:00)
[2022-09-16 06:00] VITALS: BP 108/70
[2022-09-16 06:00] LABS: BASOPHILS % (AUTO) 0.7 % (0-1); EOSINOPHILS # (AUTO) 0.1 X10'3 (0-0.9); EOSINOPHILS % (AUTO) 1.2 % (0-6); HEMATOCRIT 37.1 % (35.0-45.0); HEMOGLOBIN 12.4 g/dl (12.0-16.0); LYMPHOCYTES # (AUTO) 1.6 X10'3 (1.1-4.8); LYMPHOCYTES % (AUTO) 28.1 % (21-51); MEAN CORPUSCULAR HEMOGLOBIN 31.2 PG (27.0-31.0); MEAN CORPUSCULAR HGB CONC 33.4 g/dL (33.0-36.5); MEAN CORPUSCULAR VOLUME 93.4 FL (78-98); MEAN PLATELET VOLUME 9.6 FL (7.4-10.4); MONOCYTES # (AUTO) 0.6 X10'3 (0-0.9); MONOCYTES % (AUTO) 11.2 % (2-12); NEUTROPHILS # (AUTO) 3.3 X10'3 (1.8-7.7); NEUTROPHILS % (AUTO) 58.8 % (42-75); PLATELET COUNT 184 X10'3 (140-440); RED BLOOD COUNT 3.97 X10'6 (4.20-5.60); RED CELL DISTRIBUTION WIDTH 16.9 % (11.5-14.5); WHITE BLOOD COUNT 5.6 X10'3 (4.5-11.0)
--- NOTE | 2022-09-16 06:29 | NUR ---
Patient in room [facility] 358. I have received report from Erin HEDRICK and had the opportunity to ask questions and assume patient care.
--- NOTE | 2022-09-16 06:52 | NUR ---
Problems reprioritized. Patient report given, questions answered & plan of care reviewed with
[2022-09-16] MEDS: docusate sod 100mg capsule PO SCH (07:46)
[2022-09-16] MEDS: multivitamins, therapeutics tablet PO SCH (07:46)
[2022-09-16] MEDS: heparin, porcine 5000 units/ml vial SQ SCH (07:47)
[2022-09-16 08:00] VITALS: BP_SYST 107; BP_SYST 120; BP_SYST 122; BP_DIAS 61; BP_DIAS 77; BP_DIAS 80
[2022-09-16] MEDS ORDERED: thiamine 100mg tablet PO SCH (08:00)
[2022-09-16] MEDS ORDERED: folic acid 1mg tablet PO SCH (08:00)
[2022-09-16] MEDS: K and/or MAG REPLACEMENT MC SCH (08:00)
[2022-09-16 11:00] VITALS: BP 107/61
[2022-09-16] MEDS ORDERED: LORazepam 1 MG tablet PO PRN (13:40)
--- NOTE | 2022-09-16 13:44 | NUR ---
patient up and about in room. seen by Dr Fierro is for discharge. All Dc orders given to patient. patient DC home via private car with parent in stable condition
[2022-09-19] MEDS ORDERED: thiamine 100mg tablet PO SCH (08:00)
[2022-09-19] MEDS ORDERED: folic acid 1mg tablet PO SCH (08:00)
== END 2022-09-16 13:37 | disposition home or self-care (01) | DRG 812 ==
LOC: ER 06:27 → ED HOLD 11:10 → SUR 3N 16:30
PROVIDERS: ADMIT Internal Medicine; ATTEND Internal Medicine
DX: T39.391A Poisoning by other nonsteroidal anti-inflammatory drugs [NSAID], accidental (unintentional), initial encounter (principal); N17.9 Acute kidney failure, unspecified; M62.82 Rhabdomyolysis; E87.6 Hypokalemia; D72.829 Elevated white blood cell count, unspecified; F10.20 Alcohol dependence, uncomplicated; F12.90 Cannabis use, unspecified, uncomplicated; E86.0 Dehydration; G89.29 Other chronic pain; N82.0 Vesicovaginal fistula; F32.A Depression, unspecified; K57.90 Diverticulosis of intestine, part unspecified, without perforation or abscess without bleeding; Y92.89 Other specified places as the place of occurrence of the external cause; Z79.899 Other long term (current) drug therapy
CPT/HCPCS: 36415; 74176; 80053; 80305; 81001; 81025; 82150; 82550; 82553; 82570; 82948; 83690; 83735; 83874; 84100; 84133; 84156; 84300; 85025; 85610; 87081; 87088; 93005; 99291; A6209; A6212; G0378; J1644; J2270; J2405; J3490; J7030

== ENCOUNTER 2022-11-21 09:25 | Emergency (ER) | payer MEDICAID ==
[~2022-11-21] VITALS: Ht 170.2 cm; Wt 60.0 kg
[2022-11-21] MEDS ORDERED: LORazepam 2 mg/ml vial IV ONE (10:05)
[2022-11-21] MEDS ORDERED: diphenhydrAMINE 50 mg/ml inj IV ONE (10:05)
[2022-11-21] MEDS ORDERED: haloperidol lactate 5mg/ml inj IM ONE (10:05)
[2022-11-21 10:26] LABS: BASOPHILS # (AUTO) 0.1 X10'3 (0-0.2); BASOPHILS % (AUTO) 0.9 % (0-1); EOSINOPHILS # (AUTO) 0.1 X10'3 (0-0.9); EOSINOPHILS % (AUTO) 0.6 % (0-6); HEMATOCRIT 40.6 % (35.0-45.0); HEMOGLOBIN 13.1 g/dl (12.0-16.0); LYMPHOCYTES % (AUTO) 18.5 % (21-51); MEAN CORPUSCULAR HEMOGLOBIN 29.7 PG (27.0-31.0); MEAN CORPUSCULAR HGB CONC 32.2 g/dL (33.0-36.5); MEAN PLATELET VOLUME 9.1 FL (7.4-10.4); MONOCYTES % (AUTO) 8.7 % (2-12); NEUTROPHILS # (AUTO) 7.8 X10'3 (1.8-7.7); NEUTROPHILS % (AUTO) 71.3 % (42-75); PLATELET COUNT 248 X10'3 (140-440); RED BLOOD COUNT 4.41 X10'6 (4.20-5.60); RED CELL DISTRIBUTION WIDTH 18.7 % (11.5-14.5)
[2022-11-21 10:33] LABS: CLARITY,URINE SLIGHTLY CLOUDY (Clear); COLOR,URINE YELLOW (Yellow); GLUCOSE, URINE NEGATIVE (Neg); KETONES,URINE NEGATIVE (Neg); LEUKOCYTE ESTERASE ,URINE NEGATIVE (Neg); NITRITES, URINE NEGATIVE (Neg); OCCULT BLOOD,URINE NEGATIVE (Neg); PH,URINE 5.5 (4.8-8.0); PROTEIN,URINE TRACE mg/dl (Neg); UROBILINOGEN,URINE 0.2 E.U/dL (0.2-1.0)
[2022-11-21 10:38] LABS: URINE HCG NEGATIVE (NEG)
[2022-11-21 10:38] LABS: ALANINE AMINOTRANSFERASE 22 U/L (12-78); ALBUMIN 4.2 G/DL (3.4-5.0); ALBUMIN/GLOBULIN RATIO 1.2 (1.1-1.5); ALKALINE PHOSPHATASE 54 IU/L (46-116); ANION GAP 14 (8-16); ANISOCYTOSIS 2+; ASPARTATE AMINO TRANSFERASE 30 U/L (10-37); BILIRUBIN,TOTAL 0.4 MG/DL (0.1-1.0); BLOOD UREA NITROGEN 7 MG/DL (7-18); BUN/CREATININE RATIO 8.6 (6.6-38.0); CALCIUM 8.9 MG/DL (8.5-10.1); CHLORIDE 106 MMOL/L (99-107); CREATININE 0.81 MG/DL (0.40-0.90); ELLIPTOCYTES FEW; ETHANOL 0.138 GM/DL (0.0-0.010); GLUCOSE 106 MG/DL (70-104); LIPASE 292 U/L (73-393); PLATELET ESTIMATE NORMAL; POTASSIUM 4.1 MMOL/L (3.5-5.1); SODIUM 140 MMOL/L (135-145); TOTAL CARBON DIOXIDE 19.9 MMOL/L (24-32); TOTAL PROTEIN 7.7 G/DL (6.4-8.2); eGFR 81 ML/MIN
[2022-11-21 10:43] LABS: UA COLLECTION TYPE CLN CATCH MIDSTREAM
[2022-11-21 10:46] LABS: BACTERIA,URINE FEW /HPF (Neg); MUCUS STRANDS MANY /LPF (Neg); RBC,URINE 0-2 /HPF (0-2); SQUAMOUS EPITHELIAL CELL,UR MANY /LPF (FEW); WBC,URINE 0-4 /HPF (0-4)
[2022-11-21 10:48] LABS: TRANSITIONAL EPI CELLS,URINE FEW /HPF
[2022-11-21 10:49] LABS: URINE AMPHETAMINE SCREEN NEGATIVE (Neg); URINE BARBITUATE SCREEN NEGATIVE (Neg); URINE BENZODIAZEPINES SCREEN NEGATIVE (Neg); URINE CANNABINOID SCREEN POSITIVE (Neg); URINE COCAINE SCREEN NEGATIVE (Neg); URINE METHADONE SCREEN NEGATIVE (Neg); URINE OPIATE SCREEN NEGATIVE (Neg); URINE PHENCYCLIDINE SCREEN NEGATIVE (Neg)
--- NOTE | 2022-11-21 12:13 | NUR ---
pt states she is still in pain and wants IV fluids and morphine is what works for her pain. RN will inform .
[2022-11-21] MEDS ORDERED: diazepam inj 5 MG/ML inj. IV ONE (12:20)
[2022-11-21] MEDS ORDERED: normal saline 1000ML IV soln IV ONE (13:55)
[2022-11-21] MEDS ORDERED: proCHLORperazine 10 MG/2 ml inj IV ONE (13:55)
--- NOTE | 2022-11-21 14:07 | NUR ---
Pt vomited all over the bed. ordered antinausea meds and fluid
--- NOTE | 2022-11-21 15:12 | NUR ---
PT CONTINUES TO ACTIVELY AFTER MULTIPLE ANTIEMETICS. DR SHORT NOTIFIED
[2022-11-21] MEDS ORDERED: ondansetron/PF 4mg/2ml inj IV ONE (15:15)
[2022-11-21] MEDS ORDERED: ketorolac trometh. 30mg/ml inj. IV ONE (15:40)
[2022-11-21] MEDS ORDERED: ketorolac tromethamine 15mg/ml inj. IV ONE (15:45)
[2022-11-21 17:00] VITALS: BP 122/74
== END 2022-11-21 17:45 | disposition home or self-care (01) ==
LOC: ER 09:26
DX: R11.15 Cyclical vomiting syndrome unrelated to migraine (principal); F12.10 Cannabis abuse, uncomplicated; F32.A Depression, unspecified
CPT/HCPCS: 36415; 80053; 80305; 80320; 81001; 81025; 83690; 85008; 85025; 96361; 96372; 96374; 96375; 99285; J0780; J1200; J1630; J1885; J2060; J2405; J3360; J7030

== ENCOUNTER 2022-11-27 14:51 | Emergency (ER) | payer MEDICAID ==
[~2022-11-27] VITALS: Ht 170.2 cm; Wt 59.0 kg
[2022-11-27 15:34] LABS: BASOPHILS # (AUTO) 0.1 X10'3 (0-0.2); BASOPHILS % (AUTO) 1.2 % (0-1); EOSINOPHILS # (AUTO) 0.1 X10'3 (0-0.9); EOSINOPHILS % (AUTO) 0.8 % (0-6); HEMATOCRIT 42.4 % (35.0-45.0); HEMOGLOBIN 13.7 g/dl (12.0-16.0); LYMPHOCYTES # (AUTO) 1.5 X10'3 (1.1-4.8); LYMPHOCYTES % (AUTO) 21.1 % (21-51); MEAN CORPUSCULAR HEMOGLOBIN 29.2 PG (27.0-31.0); MEAN CORPUSCULAR HGB CONC 32.3 g/dL (33.0-36.5); MEAN CORPUSCULAR VOLUME 90.5 FL (78-98); MEAN PLATELET VOLUME 8.9 FL (7.4-10.4); MONOCYTES # (AUTO) 0.8 X10'3 (0-0.9); MONOCYTES % (AUTO) 11.6 % (2-12); NEUTROPHILS # (AUTO) 4.8 X10'3 (1.8-7.7); NEUTROPHILS % (AUTO) 65.3 % (42-75); PLATELET COUNT 299 X10'3 (140-440); RED BLOOD COUNT 4.68 X10'6 (4.20-5.60); RED CELL DISTRIBUTION WIDTH 18.4 % (11.5-14.5); WHITE BLOOD COUNT 7.3 X10'3 (4.5-11.0)
[2022-11-27 15:50] LABS: ALANINE AMINOTRANSFERASE 23 U/L (12-78); ALBUMIN 4.5 G/DL (3.4-5.0); ALBUMIN/GLOBULIN RATIO 1.2 (1.1-1.5); ALKALINE PHOSPHATASE 60 IU/L (46-116); ANION GAP 10 (8-16); ASPARTATE AMINO TRANSFERASE 23 U/L (10-37); BILIRUBIN,TOTAL 0.5 MG/DL (0.1-1.0); BLOOD UREA NITROGEN 12 MG/DL (7-18); CALCIUM 9.3 MG/DL (8.5-10.1); CHLORIDE 96 MMOL/L (99-107); CREATININE 0.86 MG/DL (0.40-0.90); GLUCOSE 119 MG/DL (70-104); LIPASE 340 U/L (73-393); SODIUM 134 MMOL/L (135-145); TOTAL CARBON DIOXIDE 27.7 MMOL/L (24-32); TOTAL PROTEIN 8.2 G/DL (6.4-8.2); eGFR 76 ML/MIN
[2022-11-27 15:55] LABS: POTASSIUM 2.7 MMOL/L (3.5-5.1)
[2022-11-27] MEDS ORDERED: normal saline 1000ml 1,000 ML IV ONE ×2 (16:35→16:40)
[2022-11-27] MEDS ORDERED: ondansetron/PF 4mg/2ml inj IV ONE (16:35)
[2022-11-27] MEDS ORDERED: morphine 4 MG/ML inj SYRINge IV ONE (16:35)
[2022-11-27] MEDS ORDERED: POTASSIUM BICARB 20meq eff tab 20 MEQ TABLET.EFF PO STA (16:38)
[2022-11-27 16:42] LABS: URINE HCG NEGATIVE (NEG)
[2022-11-27 16:52] LABS: CLARITY,URINE SLIGHTLY CLOUDY (Clear); COLOR,URINE YELLOW (Yellow); GLUCOSE, URINE NEGATIVE (Neg); KETONES,URINE TRACE mg/dl (Neg); LEUKOCYTE ESTERASE ,URINE NEGATIVE (Neg); NITRITES, URINE NEGATIVE (Neg); OCCULT BLOOD,URINE SMALL (Neg); PH,URINE 6.5 (4.8-8.0); PROTEIN,URINE 30 mg/dl (Neg); UROBILINOGEN,URINE 0.2 E.U/dL (0.2-1.0)
[2022-11-27 17:04] LABS: MAGNESIUM 2.8 MG/DL (1.5-2.4)
[2022-11-27 17:05] LABS: UA COLLECTION TYPE CLN CATCH MIDSTREAM
[2022-11-27 17:40] LABS: BACTERIA,URINE 1+ /HPF (Neg); CAL OXALATE CRYSTALS 4+ /HPF (NEGATIVE); RBC,URINE 0-2 /HPF (0-2); SQUAMOUS EPITHELIAL CELL,UR MODERATE /LPF (FEW); TRANSITIONAL EPI CELLS,URINE FEW /HPF
[2022-11-27] MEDS ORDERED: haloperidol lactate 5mg/ml inj IM ONE (18:10)
[2022-11-27] MEDS ORDERED: HYDROcodone/acetaminophen 10/325mg tab PO ONE (18:10)
[2022-11-27 18:23] LABS: URINE AMPHETAMINE SCREEN NEGATIVE (Neg); URINE BARBITUATE SCREEN NEGATIVE (Neg); URINE BENZODIAZEPINES SCREEN POSITIVE (Neg); URINE CANNABINOID SCREEN POSITIVE (Neg); URINE COCAINE SCREEN NEGATIVE (Neg); URINE METHADONE SCREEN NEGATIVE (Neg); URINE OPIATE SCREEN NEGATIVE (Neg); URINE PHENCYCLIDINE SCREEN NEGATIVE (Neg)
[2022-11-27] MEDS ORDERED: ketorolac trometh. 30mg/ml inj. IV ONE (19:05)
[2022-11-27] MEDS ORDERED: diazepam inj 5 MG/ML inj. IV ONE (19:05)
[2022-11-27] MEDS ORDERED: diphenhydrAMINE 50 mg/ml inj IV ONE (19:05)
[2022-11-27] MEDS ORDERED: METO-292 PO (19:48)
[2022-11-27] MEDS ORDERED: CAPS60CR6 TP (19:49)
[2022-11-27 19:59] VITALS: BP 84/52
== END 2022-11-27 20:20 | disposition home or self-care (01) ==
LOC: ER 14:52
DX: R11.15 Cyclical vomiting syndrome unrelated to migraine (principal); R10.84 Generalized abdominal pain; R11.2 Nausea with vomiting, unspecified; F32.9 Major depressive disorder, single episode, unspecified; F12.90 Cannabis use, unspecified, uncomplicated; Z72.89 Other problems related to lifestyle; Z79.899 Other long term (current) drug therapy
CPT/HCPCS: 36415; 80053; 80305; 81001; 81025; 83690; 83735; 85025; 96361; 96372; 96374; 96375; 99284; J1200; J1630; J1885; J2405; J3360; J7030

== ENCOUNTER 2023-08-30 13:21 | Emergency (ER) | payer MEDICAID ==
[~2023-08-30] VITALS: Ht 172.7 cm; Wt 56.8 kg
[~2023-08-30 13:21] MED LIST changes: -MELO-102 PO; +METO-292 PO
[2023-08-30] MEDS ORDERED: ketorolac trometh. 30mg/ml inj. IM ONE (13:45)
--- NOTE | 2023-08-30 14:15 | NUR ---
FIRST CONTACT WITH PT. FOUND WRITING IN BED WITH NO CLOTHES ON HER BOTTOM HALF. ASKED PT TO COVER UP, PT REPORTS IT IS TOO UNCOMFORATBLE TO WEAR UNDERWEAR. PT DIAPHORETIC, UNABLE TO SIT STILL D/T ABD PAIN. REPORTS SHE IS BEING WORKED UP FOR ENDOMETRIOSIS. AT BEDSIDE PROVIDING HEALTH INFORMATION. PT UNABLE TO SPEAK MUCH D/T PAIN.
[2023-08-30] MEDS ORDERED: diphenhydrAMINE 50 mg/ml inj IV ONE (14:25)
[2023-08-30] MEDS ORDERED: ondansetron/PF 4mg/2ml inj IV ONE (14:25)
[2023-08-30] MEDS ORDERED: normal saline 1000ml 1,000 ML IV SCH (14:25)
[2023-08-30] MEDS ORDERED: normal saline 1000ml 1,000 ML IV ONE ×2 (14:26→21:35)
[2023-08-30 14:29] LABS: BASOPHILS # (AUTO) 0.1 X10'3 (0-0.2); BASOPHILS % (AUTO) 0.5 % (0-1); EOSINOPHILS # (AUTO) 0.1 X10'3 (0-0.9); EOSINOPHILS % (AUTO) 0.6 % (0-6); HEMATOCRIT 37.9 % (35.0-45.0); HEMOGLOBIN 12.4 g/dl (12.0-16.0); LYMPHOCYTES # (AUTO) 1.7 X10'3 (1.1-4.8); LYMPHOCYTES % (AUTO) 10.1 % (21-51); MEAN CORPUSCULAR HEMOGLOBIN 29.4 PG (27.0-31.0); MEAN CORPUSCULAR HGB CONC 32.7 g/dL (33.0-36.5); MEAN CORPUSCULAR VOLUME 89.9 FL (78-98); MEAN PLATELET VOLUME 10.1 FL (7.4-10.4); MONOCYTES # (AUTO) 1.7 X10'3 (0-0.9); MONOCYTES % (AUTO) 9.9 % (2-12); NEUTROPHILS # (AUTO) 13.4 X10'3 (1.8-7.7); NEUTROPHILS % (AUTO) 78.9 % (42-75); PLATELET COUNT 203 X10'3 (140-440); RED BLOOD COUNT 4.21 X10'6 (4.20-5.60); RED CELL DISTRIBUTION WIDTH 18.1 % (11.5-14.5)
[2023-08-30 14:48] LABS: ALANINE AMINOTRANSFERASE 27 U/L (12-78); ALBUMIN 4.3 G/DL (3.4-5.0); ALBUMIN/GLOBULIN RATIO 1.4 (1.1-1.5); ALKALINE PHOSPHATASE 61 IU/L (46-116); ANION GAP 15 (8-16); ASPARTATE AMINO TRANSFERASE 27 U/L (10-37); BILIRUBIN,TOTAL 0.6 MG/DL (0.1-1.0); BLOOD UREA NITROGEN 8 MG/DL (7-18); BUN/CREATININE RATIO 9.2 (10.0-20.0); CALCIUM 9.9 MG/DL (8.5-10.1); CHLORIDE 106 MMOL/L (99-107); CREATININE 0.87 MG/DL (0.40-0.90); GLUCOSE 105 MG/DL (70-104); LIPASE 23 U/L (16-77); POTASSIUM 4.1 MMOL/L (3.5-5.1); SODIUM 143 MMOL/L (135-145); TOTAL CARBON DIOXIDE 22.2 MMOL/L (24-32); TOTAL PROTEIN 7.4 G/DL (6.4-8.2); eCRCL 82 ML/MIN; eGFR 75 ML/MIN
[2023-08-30] MEDS ORDERED: HYDROmorphone 1 mg/ml syringe IV ONE ×3 (15:20→18:30)
--- NOTE | 2023-08-30 16:30 | NUR ---
PT UP TO BSC WITH ASSISTANCE OF . URINE SAMPLE PROVIDED, WILL TAKE TO LAB.
[2023-08-30 17:01] LABS: BILIRUBIN,URINE NEGATIVE (Neg); CLARITY,URINE CLEAR (Clear); COLOR,URINE YELLOW (Yellow); GLUCOSE, URINE NEGATIVE (Neg); KETONES,URINE 40 mg/dl (Neg); LEUKOCYTE ESTERASE ,URINE NEGATIVE (Neg); NITRITES, URINE NEGATIVE (Neg); OCCULT BLOOD,URINE NEGATIVE (Neg); PROTEIN,URINE TRACE mg/dl (Neg); UROBILINOGEN,URINE 0.2 E.U/dL (0.2-1.0)
[2023-08-30 17:03] LABS: URINE HCG NEGATIVE (NEG)
[2023-08-30 17:05] LABS: UA COLLECTION TYPE VOIDED
[2023-08-30 17:06] LABS: BACTERIA,URINE NONE SEEN /HPF (Neg); MUCUS STRANDS FEW /LPF (Neg); RBC,URINE 0-2 /HPF (0-2); SQUAMOUS EPITHELIAL CELL,UR MODERATE /LPF (FEW); WBC,URINE 0-4 /HPF (0-4)
[2023-08-30 17:07] LABS: YEAST FEW /HPF (NEGATIVE)
[2023-08-30 17:16] LABS: URINE AMPHETAMINE SCREEN NEGATIVE (Neg); URINE BARBITUATE SCREEN NEGATIVE (Neg); URINE BENZODIAZEPINES SCREEN NEGATIVE (Neg); URINE CANNABINOID SCREEN POSITIVE (Neg); URINE COCAINE SCREEN NEGATIVE (Neg); URINE METHADONE SCREEN NEGATIVE (Neg); URINE OPIATE SCREEN POSITIVE (Neg); URINE PHENCYCLIDINE SCREEN NEGATIVE (Neg)
[2023-08-30] MEDS ORDERED: iohexol 300mg/ml 100ml inj. ONE (17:21)
--- NOTE | 2023-08-30 18:16 | NUR ---
REPORT GIVEN TO FLORIDALMA HARRIS
--- NOTE | 2023-08-30 18:28 | NUR ---
PREVIOUS RN NON ADMIN'D 1MG DILAUDID, PT REQUESTING MED. MD MICHAEL FUENTES'D GIVING 1MG DILAUDID.
[2023-08-30] MEDS: piperacillin/tazo 3.375gm/50ml 50 ML IV SCH (21:42)
[2023-08-31] MEDS ORDERED: piperacillin/tazo 3.375gm/50ml 50 ML IV SCH
[2023-08-31] MEDS ORDERED: acetaminophen 1,000mg/100ml IV 100 ML IV ONE (01:08)
[2023-08-31] MEDS ORDERED: HYDROmorphone 1 mg/ml syringe IV ONE (02:15)
[2023-08-31] MEDS: piperacillin/tazo 3.375gm/50ml 50 ML IV SCH ×2 (05:55→08:00)
--- NOTE | 2023-08-31 06:58 | NUR ---
PER CTC OPERATOR, [facility] DENIED PER NO BEDS, NICKIE ASKED FOR A CALL BACK AFTER SHIFT CHANGE.
[2023-08-31] MEDS ORDERED: ondansetron/PF 4mg/2ml inj IV ONE (07:50)
--- NOTE | 2023-08-31 07:59 | NUR ---
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
[2023-08-31 11:16] VITALS: BP 116/87; PULSE 85; RESP 18; TEMP 98; O2SAT 100
[2023-08-31] MEDS ORDERED: HYDROmorphone 1 mg/ml syringe IM ONE (11:30)
--- NOTE | 2023-08-31 11:46 | NUR ---
Pt requesting medical records. Pt signed medical records release form.
== END 2023-08-31 12:29 | disposition left against medical advice (07) ==
LOC: ER 13:22
DX: D72.829 Elevated white blood cell count, unspecified (principal); R93.89 Abnormal findings on diagnostic imaging of other specified body structures; F12.90 Cannabis use, unspecified, uncomplicated; F15.90 Other stimulant use, unspecified, uncomplicated; Z79.899 Other long term (current) drug therapy
CPT/HCPCS: 36415; 74177; 76830; 76856; 80053; 80305; 81001; 81025; 83605; 83690; 85025; 87040; 93976; 96361; 96372; 96374; 96375; 96376; 99285; J0131; J1170; J1200; J1885; J2405; J2543; J3490; J7030; Q9967

== ENCOUNTER 2024-01-03 11:59 | Emergency (ER) | payer MEDICAID ==
[~2024-01-03] VITALS: Ht 170.2 cm; Wt 53.2 kg
[2024-01-03 12:30] LABS: URINE HCG NEGATIVE (NEG)
[2024-01-03 12:34] LABS: BILIRUBIN,URINE SMALL (Neg); CLARITY,URINE SLIGHTLY CLOUDY (Clear); COLOR,URINE YELLOW (Yellow); GLUCOSE, URINE NEGATIVE (Neg); KETONES,URINE TRACE mg/dl (Neg); LEUKOCYTE ESTERASE ,URINE NEGATIVE (Neg); NITRITES, URINE NEGATIVE (Neg); OCCULT BLOOD,URINE NEGATIVE (Neg); PROTEIN,URINE 30 mg/dl (Neg); UROBILINOGEN,URINE 0.2 E.U/dL (0.2-1.0)
[2024-01-03 12:39] LABS: UA COLLECTION TYPE CLN CATCH MIDSTREAM
[2024-01-03 12:49] LABS: MUCUS STRANDS MANY /LPF (Neg); SQUAMOUS EPITHELIAL CELL,UR MODERATE /LPF (FEW)
[2024-01-03 12:51] LABS: BACTERIA,URINE FEW /HPF (Neg); RBC,URINE NONE SEEN /HPF (0-2); WBC,URINE 0-4 /HPF (0-4)
[2024-01-03 13:33] LABS: EOSINOPHILS # (AUTO) 0.2 X10'3 (0-0.9); HEMOGLOBIN 14.4 g/dl (12.0-16.0); NEUTROPHILS # (AUTO) 3.7 X10'3 (1.8-7.7)
[2024-01-03 13:35] LABS: BASOPHILS % (AUTO) 0.8 % (0-1); EOSINOPHILS % (AUTO) 2.8 % (0-6); HEMATOCRIT 42.1 % (35.0-45.0); LYMPHOCYTES # (AUTO) 1.6 X10'3 (1.1-4.8); MEAN CORPUSCULAR HEMOGLOBIN 30.3 PG (27.0-31.0); MEAN CORPUSCULAR HGB CONC 34.2 g/dL (33.0-36.5); MEAN CORPUSCULAR VOLUME 88.4 FL (78-98); MEAN PLATELET VOLUME 9.6 FL (7.4-10.4); MONOCYTES # (AUTO) 0.7 X10'3 (0-0.9); MONOCYTES % (AUTO) 11.8 % (2-12); NEUTROPHILS % (AUTO) 59.6 % (42-75); PLATELET COUNT 210 X10'3 (140-440); RED BLOOD COUNT 4.76 X10'6 (4.20-5.60); RED CELL DISTRIBUTION WIDTH 18.2 % (11.5-14.5); WHITE BLOOD COUNT 6.3 X10'3 (4.5-11.0)
[2024-01-03 13:45] LABS: ALANINE AMINOTRANSFERASE 48 U/L (12-78); ALKALINE PHOSPHATASE 56 IU/L (46-116); ANION GAP 8 (8-16); ASPARTATE AMINO TRANSFERASE 30 U/L (10-37); BILIRUBIN,TOTAL 0.7 MG/DL (0.1-1.0); BLOOD UREA NITROGEN 17 MG/DL (7-18); BUN/CREATININE RATIO 18.7 (10.0-20.0); CALCIUM 9.3 MG/DL (8.5-10.1); CHLORIDE 102 MMOL/L (99-107); CREATININE 0.91 MG/DL (0.40-0.90); GLUCOSE 102 MG/DL (70-104); LIPASE 47 U/L (16-77); POTASSIUM 3.3 MMOL/L (3.5-5.1); SODIUM 141 MMOL/L (135-145); TOTAL CARBON DIOXIDE 31.1 MMOL/L (24-32); TOTAL PROTEIN 8.1 G/DL (6.4-8.2); eCRCL 72 ML/MIN; eGFR 70 ML/MIN
[2024-01-03 14:52] VITALS: BP 97/68; PULSE 76; RESP 17; TEMP 98.7; O2SAT 97
[2024-01-03] MEDS ORDERED: IBUP-1984 PO (16:05)
[2024-01-03] MEDS ORDERED: LEVO750T68 PO (16:05)
[2024-01-03] MEDS: ibuprofen tablet 400 MG TABLET PO ONE (16:20)
[2024-01-03] MEDS: potassium Cl 20 mEq SR tablet PO STA (16:20)
[2024-01-03] MEDS: levoFLOXACIN 250mg tablet PO ONE (16:20)
== END 2024-01-03 16:22 | disposition home or self-care (01) ==
LOC: ER 12:00
DX: R10.30 Lower abdominal pain, unspecified (principal); M54.59 Other low back pain; F12.10 Cannabis abuse, uncomplicated; F13.10 Sedative, hypnotic or anxiolytic abuse, uncomplicated; Z79.899 Other long term (current) drug therapy
CPT/HCPCS: 36415; 80053; 81001; 81025; 83690; 85025; 99284

== ENCOUNTER 2024-05-27 14:28 | Inpatient (IN) | payer MEDICAID ==
[~2024-05-27] VITALS: Ht 170.2 cm; Wt 49.2 kg
[2024-05-27 15:17] LABS: BASOPHILS % (AUTO) 0.4 % (0-1); EOSINOPHILS % (AUTO) 0.1 % (0-6); LYMPHOCYTES # (AUTO) 1.3 X10'3 (1.1-4.8); MONOCYTES # (AUTO) 1.1 X10'3 (0-0.9); MONOCYTES % (AUTO) 9.4 % (2-12); NEUTROPHILS # (AUTO) 9.1 X10'3 (1.8-7.7)
[2024-05-27 15:18] LABS: HEMATOCRIT 43.1 % (35.0-45.0); HEMOGLOBIN 14.5 g/dl (12.0-16.0); LYMPHOCYTES % (AUTO) 11.1 % (21-51); MEAN CORPUSCULAR HEMOGLOBIN 31.8 PG (27.0-31.0); MEAN CORPUSCULAR HGB CONC 33.7 g/dL (33.0-36.5); MEAN CORPUSCULAR VOLUME 94.3 FL (78-98); MEAN PLATELET VOLUME 9.4 FL (7.4-10.4); PLATELET COUNT 270 X10'3 (140-440); RED BLOOD COUNT 4.57 X10'6 (4.20-5.60); RED CELL DISTRIBUTION WIDTH 19.8 % (11.5-14.5); WHITE BLOOD COUNT 11.5 X10'3 (4.5-11.0)
[2024-05-27] MEDS: metoclopramide 5 mg/ml inj IV ONE (15:22)
[2024-05-27] MEDS: ketorolac trometh 30MG/ML vial 30 MG/ML VIAL IV ONE (15:23)
[2024-05-27] MEDS: normal saline 1000ml 1,000 ML IV ONE ×2 (15:23→16:34)
[2024-05-27 15:34] LABS: ALANINE AMINOTRANSFERASE 22 U/L (12-78); ALBUMIN 4.8 G/DL (3.4-5.0); ALBUMIN/GLOBULIN RATIO 1.2 (1.1-1.5); ALKALINE PHOSPHATASE 71 IU/L (46-116); ANION GAP 21 (8-16); ASPARTATE AMINO TRANSFERASE 24 U/L (10-37); BILIRUBIN,TOTAL 0.8 MG/DL (0.1-1.0); BLOOD UREA NITROGEN 30 MG/DL (7-18); BUN/CREATININE RATIO 9.3 (10.0-20.0); CALCIUM 10.1 MG/DL (8.5-10.1); CHLORIDE 91 MMOL/L (99-107); CREATININE 3.22 MG/DL (0.40-0.90); GLUCOSE 137 MG/DL (70-104); LIPASE 46 U/L (16-77); POTASSIUM 3.7 MMOL/L (3.5-5.1); SODIUM 129 MMOL/L (135-145); TOTAL CARBON DIOXIDE 16.8 MMOL/L (24-32); TOTAL PROTEIN 8.9 G/DL (6.4-8.2); eCRCL 19 ML/MIN; eGFR 16 ML/MIN
[2024-05-27 17:06] LABS: BILIRUBIN,URINE MODERATE (Neg); CLARITY,URINE CLOUDY (Clear); COLOR,URINE YELLOW (Yellow); GLUCOSE, URINE NEGATIVE (Neg); KETONES,URINE TRACE mg/dl (Neg); LEUKOCYTE ESTERASE ,URINE NEGATIVE (Neg); NITRITES, URINE NEGATIVE (Neg); OCCULT BLOOD,URINE TRACE-INTACT (Neg); PH,URINE 5.5 (4.8-8.0); PROTEIN,URINE 30 mg/dl (Neg)
[2024-05-27 17:09] LABS: URINE HCG NEGATIVE (NEG)
[2024-05-27 17:10] LABS: UA COLLECTION TYPE CLN CATCH MIDSTREAM
[2024-05-27 17:12] LABS: SQUAMOUS EPITHELIAL CELL,UR FEW /LPF (FEW)
[2024-05-27 17:14] LABS: CAL OXALATE CRYSTALS 3+ /HPF (NEGATIVE)
[2024-05-27 17:15] LABS: BACTERIA,URINE 1+ /HPF (Neg); RBC,URINE NONE SEEN /HPF (0-2)
[2024-05-27] MEDS: fentaNYL/PF 50MCG/1 ML 2ML syringe IV ONE (17:21)
[2024-05-27 17:25] LABS: URINE AMPHETAMINE SCREEN NEGATIVE (Neg); URINE BARBITUATE SCREEN NEGATIVE (Neg); URINE BENZODIAZEPINES SCREEN NEGATIVE (Neg); URINE CANNABINOID SCREEN POSITIVE (Neg); URINE COCAINE SCREEN NEGATIVE (Neg); URINE METHADONE SCREEN NEGATIVE (Neg); URINE OPIATE SCREEN NEGATIVE (Neg); URINE PHENCYCLIDINE SCREEN NEGATIVE (Neg)
[2024-05-27] MEDS ORDERED: magnesium sulf-water 2g/50mL 50 ML IV PRN (17:25)
[2024-05-27] MEDS ORDERED: magnesium Cl slow-release 64mg tablet PO PRN (17:25)
[2024-05-27] MEDS ORDERED: potassium Cl 20 mEq SR tablet PO PRN (17:25)
[2024-05-27] MEDS ORDERED: mag hydrox/Alum hydrox/simeth 30ml oral suspension PO PRN (17:25)
[2024-05-27] MEDS: normal saline 1000ml 1,000 ML IV SCH (17:25)
[2024-05-27] MEDS ORDERED: acetaminophen 325mg tablet PO PRN (17:25)
[2024-05-27] MEDS ORDERED: morphine 2 MG/ML inj. syringe IV PRN (17:25)
[2024-05-27] MEDS ORDERED: magnesium sulf-water 4G/100mL 100 ML IV PRN (17:25)
[2024-05-27] MEDS ORDERED: magnesium hydroxide 30ml (MOM) UD suspension PO PRN (17:25)
[2024-05-27] MEDS ORDERED: HYDROcodone/acetaminophen 5mg/325mg tablet PO PRN (17:25)
[2024-05-27] MEDS ORDERED: potassium Cl 40MEQ/1/2NS 520ml 520 ML IV PRN (17:25)
[2024-05-27] MEDS: morphine 2 MG/ML inj. syringe IV PRN (19:29)
[2024-05-27] MEDS: K and/or MAG REPLACEMENT MC SCH (20:00)
[2024-05-27] MEDS ORDERED: NORT25CA PO (20:50)
[2024-05-27] MEDS ORDERED: FAMO40TA8 PO (20:50)
[2024-05-27] MEDS: docusate sod 100mg capsule PO SCH (21:01)
[2024-05-27] MEDS: HYDROcodone/acetaminophen 10/325mg tab PO PRN (21:01)
[2024-05-27] MEDS: heparin, porcine 5000 units/ml vial SQ SCH (21:01)
[2024-05-27 21:25] VITALS: BP 125/97; PULSE 110; RESP 19; TEMP 97.9; O2SAT 94
[2024-05-27] MEDS: ondansetron/PF 4mg/2ml inj IV PRN (23:35)
[2024-05-28] VITALS (7 sets, daily range): BP systolic 100–121; BP diastolic 68–79; PULSE 66–101; RESP 12–18; TEMP 97.2–98.7; O2SAT 94–100
[2024-05-28 07:33] LABS: BASOPHILS % (AUTO) 0.5 % (0-1); EOSINOPHILS # (AUTO) 0.1 X10'3 (0-0.9); EOSINOPHILS % (AUTO) 1.1 % (0-6); HEMATOCRIT 31.9 % (35.0-45.0); HEMOGLOBIN 10.5 g/dl (12.0-16.0); LYMPHOCYTES # (AUTO) 1.9 X10'3 (1.1-4.8); LYMPHOCYTES % (AUTO) 34.1 % (21-51); MEAN CORPUSCULAR HEMOGLOBIN 31.2 PG (27.0-31.0); MEAN CORPUSCULAR HGB CONC 32.9 g/dL (33.0-36.5); MEAN CORPUSCULAR VOLUME 94.9 FL (78-98); MEAN PLATELET VOLUME 9.5 FL (7.4-10.4); MONOCYTES # (AUTO) 0.5 X10'3 (0-0.9); MONOCYTES % (AUTO) 8.8 % (2-12); NEUTROPHILS # (AUTO) 3.1 X10'3 (1.8-7.7); NEUTROPHILS % (AUTO) 55.5 % (42-75); PLATELET COUNT 143 X10'3 (140-440); RED BLOOD COUNT 3.36 X10'6 (4.20-5.60); RED CELL DISTRIBUTION WIDTH 19.8 % (11.5-14.5); WHITE BLOOD COUNT 5.6 X10'3 (4.5-11.0)
[2024-05-28 07:40] LABS: ALBUMIN 3.1 G/DL (3.4-5.0); ANION GAP 11 (8-16); BLOOD UREA NITROGEN 17 MG/DL (7-18); BUN/CREATININE RATIO 21.3 (10.0-20.0); CHLORIDE 101 MMOL/L (99-107); GLUCOSE 83 MG/DL (70-104); SODIUM 133 MMOL/L (135-145); eCRCL 76 ML/MIN; eGFR 82 ML/MIN
[2024-05-28 07:49] LABS: POTASSIUM 2.9 MMOL/L (3.5-5.1)
[2024-05-28] MEDS: pantoprazole 40 MG vial IV SCH (07:58)
[2024-05-28] MEDS: potassium Cl 20 mEq SR tablet PO PRN (08:20)
[2024-05-28 09:10] LABS: OSMOLALITY UA 516 MOSM/K (50-1400)
[2024-05-28 09:22] LABS: SODIUM,URINE RANDOM < 15 MEQ/L
[2024-05-28] MEDS: CefTRIAXone/D5W-Rocephin 1gm 50 ML IV SCH (09:42)
[2024-05-28] MEDS: normal saline 1000ml 1,000 ML IV SCH (12:34)
[2024-05-28] MEDS: lactose-reduced food (Ensure Enlive) - 237ml bottle PO SCH (13:00)
[2024-05-28] MEDS ORDERED: haloperidol 5mg tablet PO PRN (13:15)
[2024-05-28] MEDS ORDERED: haloperidol lactate 5mg/ml inj IM PRN (13:15)
[2024-05-28] MEDS ORDERED: dextrose 50%-water 50ml dispensing syringe IV PRN (13:15)
[2024-05-28] MEDS ORDERED: LORazepam 2 mg/ml vial IV PRN (13:15)
[2024-05-28 13:37] LABS: MAGNESIUM 2.2 MG/DL (1.5-2.4)
[2024-05-28 14:45] LABS: ANISOCYTOSIS 2+; BURR CELLS FEW; ELLIPTOCYTES 1+; PLATELET ESTIMATE NORMAL; POLYCHROMASIA FEW
[2024-05-28] MEDS: LORazepam 1 MG tablet PO PRN (15:22)
[2024-05-29 06:58] LABS: BASOPHILS % (AUTO) 0.7 % (0-1); EOSINOPHILS # (AUTO) 0.1 X10'3 (0-0.9); EOSINOPHILS % (AUTO) 1.9 % (0-6); HEMATOCRIT 30.4 % (35.0-45.0); HEMOGLOBIN 10.1 g/dl (12.0-16.0); LYMPHOCYTES # (AUTO) 1.5 X10'3 (1.1-4.8); LYMPHOCYTES % (AUTO) 38.3 % (21-51); MEAN CORPUSCULAR HEMOGLOBIN 31.9 PG (27.0-31.0); MEAN CORPUSCULAR HGB CONC 33.1 g/dL (33.0-36.5); MEAN CORPUSCULAR VOLUME 96.3 FL (78-98); MEAN PLATELET VOLUME 9.8 FL (7.4-10.4); MONOCYTES # (AUTO) 0.4 X10'3 (0-0.9); MONOCYTES % (AUTO) 9.6 % (2-12); NEUTROPHILS # (AUTO) 1.9 X10'3 (1.8-7.7); NEUTROPHILS % (AUTO) 49.5 % (42-75); PLATELET COUNT 123 X10'3 (140-440); RED BLOOD COUNT 3.15 X10'6 (4.20-5.60); RED CELL DISTRIBUTION WIDTH 19.7 % (11.5-14.5); WHITE BLOOD COUNT 3.9 X10'3 (4.5-11.0)
[2024-05-29 07:01] LABS: ALBUMIN 2.6 G/DL (3.4-5.0); ANION GAP 6 (8-16); BLOOD UREA NITROGEN 7 MG/DL (7-18); BUN/CREATININE RATIO 13.5 (10.0-20.0); CHLORIDE 106 MMOL/L (99-107); CREATININE 0.52 MG/DL (0.40-0.90); GLUCOSE 82 MG/DL (70-104); POTASSIUM 4.2 MMOL/L (3.5-5.1); SODIUM 135 MMOL/L (135-145); TOTAL CARBON DIOXIDE 23.1 MMOL/L (24-32); eCRCL 117 ML/MIN; eGFR > 90 ML/MIN
[2024-05-29 07:18] VITALS: BP 128/69; PULSE 89; RESP 17; TEMP 97.5; O2SAT 96
[2024-05-29 09:00] VITALS: RESP 17; O2SAT 96
[2024-05-29 09:30] VITALS: RESP 16
[2024-05-29] MEDS ORDERED: FOLI1TAB27 PO (10:53)
[2024-05-29] MEDS ORDERED: THIA100T70 PO (10:53)
[2024-05-29] MEDS ORDERED: PANT-47 PO (10:53)
[2024-05-29] MEDS ORDERED: AMOX-580 PO (15:35)
[2024-05-29] MEDS ORDERED: LACT1CAP74 PO (15:35)
[2024-06-02] MEDS ORDERED: thiamine 100mg tablet PO SCH (08:00)
[2024-06-02] MEDS ORDERED: folic acid 1mg tablet PO SCH (08:00)
== END 2024-05-29 11:20 | disposition home or self-care (01) | DRG 241 ==
LOC: ER 14:29 → ED HOLD 17:28 → ORTHO 4S 21:25
PROVIDERS: ADMIT Family Medicine; ATTEND Family Medicine
DX: K29.20 Alcoholic gastritis without bleeding (principal); N17.0 Acute kidney failure with tubular necrosis; E43 Unspecified severe protein-calorie malnutrition; E87.20 Acidosis, unspecified; E86.0 Dehydration; E87.1 Hypo-osmolality and hyponatremia; E87.6 Hypokalemia; N30.00 Acute cystitis without hematuria; F32.A Depression, unspecified; F10.20 Alcohol dependence, uncomplicated; T39.395A Adverse effect of other nonsteroidal anti-inflammatory drugs [NSAID], initial encounter; K21.9 Gastro-esophageal reflux disease without esophagitis; R11.2 Nausea with vomiting, unspecified; N80.8 Other endometriosis; F12.90 Cannabis use, unspecified, uncomplicated; K57.90 Diverticulosis of intestine, part unspecified, without perforation or abscess without bleeding; Z79.899 Other long term (current) drug therapy; Z87.891 Personal history of nicotine dependence; Y92.89 Other specified places as the place of occurrence of the external cause; Z68.1 Body mass index [BMI] 19.9 or less, adult
CPT/HCPCS: 36415; 74176; 80048; 80053; 80305; 81001; 81025; 82570; 82948; 83690; 83735; 83930; 83935; 84132; 84300; 85008; 85025; 87077; 87081; 87088; 87186; 87207; 99285; A6258; G0378; J0696; J1644; J1885; J2270; J2405; J2470; J2765; J3010; J7030

== ENCOUNTER 2024-06-17 19:01 | Emergency (ER) | payer MEDICAID ==
[~2024-06-17] VITALS: Ht 170.2 cm; Wt 55.0 kg
[~2024-06-17 19:01] MED LIST changes: +AMOX-580 PO; +FOLI1TAB27 PO; +LACT1CAP74 PO; +NORT25CA PO; +PANT-47 PO; +THIA100T70 PO
[2024-06-17 19:38] LABS: BILIRUBIN,URINE MODERATE (Neg); CLARITY,URINE CLOUDY (Clear); COLOR,URINE YELLOW (Yellow); GLUCOSE, URINE NEGATIVE (Neg); KETONES,URINE TRACE mg/dl (Neg); LEUKOCYTE ESTERASE ,URINE NEGATIVE (Neg); OCCULT BLOOD,URINE TRACE-INTACT (Neg); PH,URINE 5.5 (4.8-8.0); PROTEIN,URINE 30 mg/dl (Neg); UROBILINOGEN,URINE 0.2 E.U/dL (0.2-1.0)
[2024-06-17 19:40] LABS: URINE HCG NEGATIVE (NEG)
[2024-06-17 19:42] LABS: UA COLLECTION TYPE CLN CATCH MIDSTREAM
[2024-06-17 19:43] LABS: NITRITES, URINE NEGATIVE (Neg)
[2024-06-17 19:43] LABS: BASOPHILS # (AUTO) 0.1 X10'3 (0-0.2); EOSINOPHILS # (AUTO) 0.1 X10'3 (0-0.9); MEAN CORPUSCULAR VOLUME 95.2 FL (78-98); MEAN PLATELET VOLUME 8.5 FL (7.4-10.4); NEUTROPHILS # (AUTO) 2.6 X10'3 (1.8-7.7)
[2024-06-17 19:45] LABS: BASOPHILS % (AUTO) 1.1 % (0-1); EOSINOPHILS % (AUTO) 1.5 % (0-6); HEMATOCRIT 40.6 % (35.0-45.0); HEMOGLOBIN 13.2 g/dl (12.0-16.0); MEAN CORPUSCULAR HGB CONC 32.5 g/dL (33.0-36.5); MONOCYTES # (AUTO) 0.6 X10'3 (0-0.9); MONOCYTES % (AUTO) 11.2 % (2-12); NEUTROPHILS % (AUTO) 48.2 % (42-75); PLATELET COUNT 261 X10'3 (140-440); RED BLOOD COUNT 4.26 X10'6 (4.20-5.60); RED CELL DISTRIBUTION WIDTH 21.1 % (11.5-14.5); WHITE BLOOD COUNT 5.3 X10'3 (4.5-11.0)
[2024-06-17 19:54] LABS: ALANINE AMINOTRANSFERASE 32 U/L (12-78); ALBUMIN 3.8 G/DL (3.4-5.0); ALBUMIN/GLOBULIN RATIO 1.1 (1.1-1.5); ALKALINE PHOSPHATASE 52 IU/L (46-116); ANION GAP 10 (8-16); ASPARTATE AMINO TRANSFERASE 32 U/L (10-37); BILIRUBIN,TOTAL 1.5 MG/DL (0.1-1.0); BLOOD UREA NITROGEN 7 MG/DL (7-18); BUN/CREATININE RATIO 9.9 (10.0-20.0); CALCIUM 9.4 MG/DL (8.5-10.1); CHLORIDE 104 MMOL/L (99-107); CREATININE 0.71 MG/DL (0.40-0.90); GLUCOSE 122 MG/DL (70-104); LIPASE 49 U/L (16-77); POTASSIUM 3.3 MMOL/L (3.5-5.1); SODIUM 140 MMOL/L (135-145); TOTAL CARBON DIOXIDE 25.9 MMOL/L (24-32); TOTAL PROTEIN 7.4 G/DL (6.4-8.2); eCRCL 96 ML/MIN; eGFR > 90 ML/MIN
[2024-06-17 20:03] LABS: MUCUS STRANDS MANY /LPF (Neg); RBC,URINE 0-2 /HPF (0-2); SQUAMOUS EPITHELIAL CELL,UR MANY /LPF (FEW)
[2024-06-17 20:04] LABS: BACTERIA,URINE FEW /HPF (Neg); HYALINE CASTS 0-3 /LPF (NEGATIVE)
[2024-06-17] MEDS ORDERED: DICY20TA17 PO (20:30)
[2024-06-17] MEDS ORDERED: ONDA-243 PO (20:30)
[2024-06-17] MEDS: HYDROcodone/acetaminophen 5mg/325mg tablet PO ONE (20:43)
[2024-06-17] MEDS: dicyclomine 10 MG capsule PO ONE (20:43)
[2024-06-17] MEDS: ondansetron 4mg rapidly disintigrating tab PO ONE (20:43)
[2024-06-17 20:58] VITALS: BP 109/75; PULSE 78; RESP 16; TEMP 97.9; O2SAT 97
[2024-06-17 22:03] LABS: ANISOCYTOSIS 3+; ELLIPTOCYTES FEW; PLATELET ESTIMATE NORMAL
== END 2024-06-17 21:01 | disposition home or self-care (01) ==
LOC: ER 19:01
DX: R10.9 Unspecified abdominal pain (principal); F12.90 Cannabis use, unspecified, uncomplicated; F15.90 Other stimulant use, unspecified, uncomplicated; Z79.2 Long term (current) use of antibiotics; Z79.899 Other long term (current) drug therapy
CPT/HCPCS: 36415; 74176; 80053; 81001; 81025; 83690; 85008; 85025; 99284

== ENCOUNTER 2024-07-23 11:26 | Emergency (ER) | payer MEDICAID ==
[~2024-07-23] VITALS: Ht 170.2 cm; Wt 65.0 kg
[~2024-07-23 11:26] MED LIST changes: -AMOX-580 PO; +DICY20TA17 PO; +ONDA-243 PO
[2024-07-23 11:27] VITALS: TEMP 97.5
[2024-07-23 14:11] LABS: URINE HCG NEGATIVE (NEG)
[2024-07-23 14:14] LABS: BILIRUBIN,URINE NEGATIVE (Neg); CLARITY,URINE CLEAR (Clear); COLOR,URINE YELLOW (Yellow); GLUCOSE, URINE NEGATIVE (Neg); KETONES,URINE 40 mg/dl (Neg); LEUKOCYTE ESTERASE ,URINE NEGATIVE (Neg); NITRITES, URINE NEGATIVE (Neg); OCCULT BLOOD,URINE TRACE-LYSED (Neg); PH,URINE 5.5 (4.8-8.0); PROTEIN,URINE 30 mg/dl (Neg); UROBILINOGEN,URINE 0.2 E.U/dL (0.2-1.0)
[2024-07-23 14:24] LABS: UA COLLECTION TYPE CLN CATCH MIDSTREAM
[2024-07-23 14:25] LABS: BACTERIA,URINE NONE SEEN /HPF (Neg); MUCUS STRANDS FEW /LPF (Neg); RBC,URINE 0-2 /HPF (0-2); SQUAMOUS EPITHELIAL CELL,UR FEW /LPF (FEW); WBC,URINE 0-4 /HPF (0-4)
[2024-07-23 14:26] LABS: BASOPHILS # (AUTO) 0.1 X10'3 (0-0.2); EOSINOPHILS % (AUTO) 0 % (0-6); HEMATOCRIT 37.6 % (35.0-45.0); HEMOGLOBIN 12.4 g/dl (12.0-16.0); LYMPHOCYTES # (AUTO) 1.3 X10'3 (1.1-4.8); LYMPHOCYTES % (AUTO) 19.1 % (21-51); MEAN CORPUSCULAR HEMOGLOBIN 31.6 PG (27.0-31.0); MEAN CORPUSCULAR HGB CONC 32.9 g/dL (33.0-36.5); MEAN CORPUSCULAR VOLUME 96.1 FL (78-98); MEAN PLATELET VOLUME 8.9 FL (7.4-10.4); MONOCYTES # (AUTO) 0.5 X10'3 (0-0.9); MONOCYTES % (AUTO) 7.5 % (2-12); NEUTROPHILS # (AUTO) 5.1 X10'3 (1.8-7.7); NEUTROPHILS % (AUTO) 72.4 % (42-75); PLATELET COUNT 194 X10'3 (140-440); RED BLOOD COUNT 3.92 X10'6 (4.20-5.60)
[2024-07-23 14:54] LABS: ALANINE AMINOTRANSFERASE 17 U/L (12-78); ALBUMIN 3.7 G/DL (3.4-5.0); ALBUMIN/GLOBULIN RATIO 1.2 (1.1-1.5); ALKALINE PHOSPHATASE 61 IU/L (46-116); ANION GAP 16 (8-16); ASPARTATE AMINO TRANSFERASE 37 U/L (10-37); BILIRUBIN,TOTAL 0.8 MG/DL (0.1-1.0); BLOOD UREA NITROGEN 9 MG/DL (7-18); BUN/CREATININE RATIO 13.4 (10.0-20.0); CALCIUM 8.7 MG/DL (8.5-10.1); CHLORIDE 100 MMOL/L (99-107); CREATININE 0.67 MG/DL (0.40-0.90); GLUCOSE 59 MG/DL (70-104); LIPASE 83 U/L (16-77); POTASSIUM 4.5 MMOL/L (3.5-5.1); SODIUM 136 MMOL/L (135-145); TOTAL CARBON DIOXIDE 19.6 MMOL/L (24-32); TOTAL PROTEIN 6.9 G/DL (6.4-8.2); eCRCL 114 ML/MIN; eGFR > 90 ML/MIN
[2024-07-23] MEDS: normal saline 1000ML IV soln IVB ONE (14:56)
[2024-07-23 14:57] LABS: ANISOCYTOSIS 2+; PLATELET ESTIMATE NORMAL
[2024-07-23] MEDS: pantoprazole 40 MG vial IV ONE (14:57)
[2024-07-23] MEDS: ondansetron/PF 4mg/2ml inj IV ONE (14:57)
[2024-07-23 14:58] LABS: ELLIPTOCYTES FEW; SCHISTOCYTES FEW
[2024-07-23] MEDS ORDERED: ONDA-245 PO (16:02)
[2024-07-23 16:22] VITALS: BP 116/77; PULSE 108; RESP 16; O2SAT 100
== END 2024-07-23 16:32 | disposition home or self-care (01) ==
LOC: ER 11:26
DX: R11.10 Vomiting, unspecified (principal); R10.9 Unspecified abdominal pain; F32.A Depression, unspecified; F12.90 Cannabis use, unspecified, uncomplicated; F17.200 Nicotine dependence, unspecified, uncomplicated; F10.90 Alcohol use, unspecified, uncomplicated; Z79.899 Other long term (current) drug therapy; Z56.0 Unemployment, unspecified
CPT/HCPCS: 36415; 80053; 81001; 81025; 83690; 85008; 85025; 96365; 96375; 99284; J2405; J2470; J7030

== ENCOUNTER 2024-10-11 02:24 | Emergency (ER) | payer MEDICAID ==
[~2024-10-11] VITALS: Ht 167.6 cm; Wt 54.0 kg
[~2024-10-11 02:24] MED LIST changes: +ONDA-245 PO
[2024-10-11 02:27] VITALS: TEMP 98.2
[2024-10-11] MEDS: normal saline 1000ML IV soln IVB ONE ×3 (02:49→05:07)
[2024-10-11] MEDS: LORazepam 2 mg/ml vial IV ONE (02:49)
[2024-10-11] MEDS: diphenhydrAMINE 50 mg/ml inj IV ONE (02:50)
[2024-10-11] MEDS: ketorolac trometh 15mg/ml vial 15 MG/ML ML IV ONE (02:50)
[2024-10-11] MEDS: metoclopramide 5 mg/ml inj IV ONE (02:50)
[2024-10-11 03:10] LABS: BASOPHILS # (AUTO) 0.1 X10'3 (0-0.2); EOSINOPHILS % (AUTO) 0.2 % (0-6); HEMATOCRIT 39.6 % (35.0-45.0); HEMOGLOBIN 12.9 g/dl (12.0-16.0); LYMPHOCYTES # (AUTO) 2.2 X10'3 (1.1-4.8); LYMPHOCYTES % (AUTO) 19.1 % (21-51); MEAN CORPUSCULAR HEMOGLOBIN 30.2 PG (27.0-31.0); MEAN CORPUSCULAR HGB CONC 32.7 g/dL (33.0-36.5); MEAN CORPUSCULAR VOLUME 92.6 FL (78-98); MEAN PLATELET VOLUME 10.2 FL (7.4-10.4); MONOCYTES # (AUTO) 0.7 X10'3 (0-0.9); NEUTROPHILS # (AUTO) 8.6 X10'3 (1.8-7.7); NEUTROPHILS % (AUTO) 73.7 % (42-75); PLATELET COUNT 236 X10'3 (140-440); RED BLOOD COUNT 4.28 X10'6 (4.20-5.60); RED CELL DISTRIBUTION WIDTH 17.9 % (11.5-14.5); WHITE BLOOD COUNT 11.6 X10'3 (4.5-11.0)
[2024-10-11 03:33] LABS: ALANINE AMINOTRANSFERASE 32 U/L (12-78); ALBUMIN 4.3 G/DL (3.4-5.0); ALBUMIN/GLOBULIN RATIO 1.3 (1.1-1.5); ALKALINE PHOSPHATASE 65 IU/L (46-116); ANION GAP 18 (8-16); ASPARTATE AMINO TRANSFERASE 49 U/L (10-37); BILIRUBIN,TOTAL 0.4 MG/DL (0.1-1.0); BLOOD UREA NITROGEN 11 MG/DL (7-18); BUN/CREATININE RATIO 12.6 (10.0-20.0); CALCIUM 9.3 MG/DL (8.5-10.1); CHLORIDE 106 MMOL/L (99-107); CREATININE 0.87 MG/DL (0.40-0.90); GLUCOSE 138 MG/DL (70-104); LIPASE 57 U/L (16-77); POTASSIUM 3.9 MMOL/L (3.5-5.1); SODIUM 143 MMOL/L (135-145); TOTAL CARBON DIOXIDE 18.9 MMOL/L (24-32); TOTAL PROTEIN 7.7 G/DL (6.4-8.2); eCRCL 77 ML/MIN; eGFR 90 ML/MIN
[2024-10-11 04:33] LABS: BILIRUBIN,URINE NEGATIVE (Neg); CLARITY,URINE CLEAR (Clear); COLOR,URINE YELLOW (Yellow); GLUCOSE, URINE NEGATIVE (Neg); KETONES,URINE NEGATIVE (Neg); LEUKOCYTE ESTERASE ,URINE NEGATIVE (Neg); NITRITES, URINE NEGATIVE (Neg); OCCULT BLOOD,URINE NEGATIVE (Neg); PH,URINE 5.5 (4.8-8.0); PROTEIN,URINE TRACE mg/dl (Neg); UROBILINOGEN,URINE 0.2 E.U/dL (0.2-1.0)
[2024-10-11 04:35] LABS: UA COLLECTION TYPE VOIDED; URINE HCG NEGATIVE (NEG)
[2024-10-11 04:39] LABS: BACTERIA,URINE FEW /HPF (Neg); RBC,URINE NONE SEEN /HPF (0-2); SQUAMOUS EPITHELIAL CELL,UR MODERATE /LPF (FEW); WBC,URINE 0-4 /HPF (0-4)
[2024-10-11 04:40] LABS: HYALINE CASTS 0-3 /LPF (NEGATIVE)
[2024-10-11] MEDS: haloperidol lactate 5mg/ml inj IM ONE (04:49)
[2024-10-11] MEDS ORDERED: levoFLOXACIN 250mg tablet PO ONE (05:15)
[2024-10-11] MEDS ORDERED: ONDA-243 PO (05:33)
[2024-10-11] MEDS ORDERED: DICY10CA88 PO (05:33)
[2024-10-11] MEDS ORDERED: OMEP40CA21 PO (05:33)
[2024-10-11] MEDS: pantoprazole 40 MG vial IV SCH (05:40)
[2024-10-11] MEDS: pantoprazole 40 MG vial IV STA (05:47)
[2024-10-11] MEDS: glycopyrrolate 0.2mg/ml inj IV ONE (05:47)
[2024-10-11 06:18] VITALS: BP 101/59; PULSE 109; RESP 16; O2SAT 96
[2024-10-11 16:21] LABS: URINE AMPHETAMINE SCREEN NEGATIVE (Neg); URINE BARBITUATE SCREEN NEGATIVE (Neg); URINE BENZODIAZEPINES SCREEN NEGATIVE (Neg); URINE CANNABINOID SCREEN POSITIVE (Neg); URINE COCAINE SCREEN NEGATIVE (Neg); URINE METHADONE SCREEN NEGATIVE (Neg); URINE OPIATE SCREEN NEGATIVE (Neg); URINE PHENCYCLIDINE SCREEN NEGATIVE (Neg)
== END 2024-10-11 06:19 | disposition home or self-care (01) ==
LOC: ER 02:25
DX: R11.2 Nausea with vomiting, unspecified (principal); R10.84 Generalized abdominal pain; F12.90 Cannabis use, unspecified, uncomplicated; F10.10 Alcohol abuse, uncomplicated; F15.90 Other stimulant use, unspecified, uncomplicated; F32.A Depression, unspecified; Z56.0 Unemployment, unspecified; Z79.899 Other long term (current) drug therapy; Y90.9 Presence of alcohol in blood, level not specified
CPT/HCPCS: 36415; 80053; 80305; 81001; 81025; 83690; 85025; 93005; 96361; 96372; 96374; 96375; 99284; J1200; J1630; J1885; J2060; J2470; J2765; J3490; J7030

== ENCOUNTER 2024-12-20 13:21 | Emergency (ER) | payer MEDICAID ==
[~2024-12-20] VITALS: Ht 170.2 cm; Wt 59.1 kg
[~2024-12-20 13:21] MED LIST changes: +ACET-1025 PO; -DICY20TA17 PO; +DIPH-423 PO; -FOLI1TAB27 PO; +LACT1CAP26 PO; -LACT1CAP74 PO; +LEVO-65 PO; -METO-292 PO; +METR-159 PO; -NORT25CA PO; -ONDA-245 PO; -PANT-47 PO; +PANT40TA54 PO; +POTA-207 PO; -THIA100T70 PO
[2024-12-20 14:37] LABS: BASOPHILS % (AUTO) 0.5 % (0-1); EOSINOPHILS # (AUTO) 0.2 X10'3 (0-0.9); HEMOGLOBIN 13.1 g/dl (12.0-16.0); LYMPHOCYTES # (AUTO) 1.9 X10'3 (1.1-4.8); MEAN PLATELET VOLUME 9.6 FL (7.4-10.4); MONOCYTES # (AUTO) 0.8 X10'3 (0-0.9); RED CELL DISTRIBUTION WIDTH 19.3 % (11.5-14.5)
[2024-12-20 14:39] LABS: EOSINOPHILS % (AUTO) 2.6 % (0-6); HEMATOCRIT 40.2 % (35.0-45.0); LYMPHOCYTES % (AUTO) 19.6 % (21-51); MEAN CORPUSCULAR HEMOGLOBIN 30.5 PG (27.0-31.0); MEAN CORPUSCULAR HGB CONC 32.6 g/dL (33.0-36.5); MEAN CORPUSCULAR VOLUME 93.7 FL (78-98); MONOCYTES % (AUTO) 8.4 % (2-12); NEUTROPHILS # (AUTO) 6.6 X10'3 (1.8-7.7); NEUTROPHILS % (AUTO) 68.9 % (42-75); PLATELET COUNT 244 X10'3 (140-440); RED BLOOD COUNT 4.29 X10'6 (4.20-5.60); WHITE BLOOD COUNT 9.6 X10'3 (4.5-11.0)
[2024-12-20 14:48] LABS: ALANINE AMINOTRANSFERASE 63 U/L (12-78); ALBUMIN/GLOBULIN RATIO 1.1 (1.1-1.5); ALKALINE PHOSPHATASE 51 IU/L (46-116); ANION GAP 10 (8-16); ASPARTATE AMINO TRANSFERASE 40 U/L (10-37); BILIRUBIN,TOTAL 0.4 MG/DL (0.1-1.0); BLOOD UREA NITROGEN 7 MG/DL (7-18); BUN/CREATININE RATIO 8.8 (10.0-20.0); CALCIUM 9.1 MG/DL (8.5-10.1); CHLORIDE 108 MMOL/L (99-107); GLUCOSE 124 MG/DL (70-104); LIPASE 49 U/L (16-77); SODIUM 142 MMOL/L (135-145); TOTAL CARBON DIOXIDE 24.5 MMOL/L (24-32); TOTAL PROTEIN 7.7 G/DL (6.4-8.2); eCRCL 91 ML/MIN; eGFR > 90 ML/MIN
[2024-12-20 14:58] LABS: ANISOCYTOSIS 2+; PLATELET ESTIMATE NORMAL
[2024-12-20 14:59] LABS: LARGE PLATELETS FEW
[2024-12-20 15:00] LABS: GIANT PLATELET FEW
[2024-12-20] MEDS: normal saline 1000ml 1,000 ML IV ONE (15:06)
[2024-12-20] MEDS: HYDROmorphone 1 mg/ml syringe IV ONE (15:09)
[2024-12-20] MEDS: haloperidol lactate 5mg/ml inj IM ONE (15:10)
[2024-12-20] MEDS ORDERED: iohexol 300mg/ml 100ml inj. ONE (15:51)
[2024-12-20 16:15] LABS: HCG SERUM QL NEGATIVE
[2024-12-20] MEDS ORDERED: ketorolac trometh 15mg/ml vial 15 MG/ML ML IV ONE (17:55)
[2024-12-20] MEDS ORDERED: METO10TA3 PO (17:58)
[2024-12-20] MEDS: ketorolac trometh 30MG/ML vial 30 MG/ML VIAL IV ONE (17:59)
[2024-12-20 18:09] VITALS: BP 110/65; PULSE 86; RESP 16; TEMP 98.3; O2SAT 98
== END 2024-12-20 18:11 | disposition home or self-care (01) ==
LOC: ER 13:21
DX: R10.9 Unspecified abdominal pain (principal); R11.15 Cyclical vomiting syndrome unrelated to migraine
CPT/HCPCS: 36415; 74177; 80053; 83690; 84703; 85008; 85025; 96361; 96372; 96374; 96375; 99285; J1171; J1630; J1885; J7030; Q9967

== ENCOUNTER 2025-02-06 20:59 | Inpatient (IN) | payer MEDICAID ==
[~2025-02-06] VITALS: Ht 170.2 cm; Wt 56.3 kg
[~2025-02-06 20:59] MED LIST changes: -LEVO-65 PO; -METR-159 PO; -POTA-207 PO
--- NOTE | 2025-02-06 21:43 | Physician Documentation ---
History of Present Illness Chief Complaint: Abdominal Pain Stated Complaint: ABD/PELVIC PAIN Time Seen by MD: 21:43 Primary Medical Doctor: Lavell Source: patient, family HPI 34-year-old female, history of cyclic vomiting, chronic abdominal pain issues, who presents with abdominal pain and vomiting. Here in the ED, the patient is in mild distress, unable to sit still in bed, and this is a limited historian. She does report generalized abdominal pain with nausea and vomiting. She tells me I am having a lot of gas coming out of my vagina. Her mother is at bedside. She tells me that the patient has recurrent episodes similar to this. She states she was seen several specialists, and is waiting to follow up with the surgeon. The only thing that helps is hot baths. She denies any new or different symptoms for this episode compared to previous. They tell me that she normally receives medications and fluids with improvement. Medication Reconciliation Allergies: Coded Allergies: No Known Allergies (Unverified , 12/20/24) Miscellaneous Medications Home Med List (No Home Medications), (Reported) Discontinued Medications Acetaminophen (Tylenol Extra Strength), 4 TAB PO DAILY PRN for pain or fever, (Reported) Discontinued Reason: patient no longer taking Diphenhydramine Hcl (Benadryl), 25 MG PO BID PRN ITCHING Discontinued Reason: patient no longer taking Lactobacillus Rhamnosus (Culturelle), 1 CAP PO BID Discontinued Reason: patient no longer taking ONDANSETRON ODT 4mg tablet (Ondansetron Odt), 1 TAB PO Q12H PRN for nausea/vomiting, (Reported) Discontinued Reason: patient no longer taking Pantoprazole Sodium (Pantoprazole Sodium), 40 MG PO BKF Discontinued Reason: patient no longer taking Past Medical History Past Medical History: *GI/HEPATOBILIARY*, Diverticulosis, Depression Past Surgical History: no surgical history Patient History: Patient reports no known family medical history. Alcohol Use: Heavy Drug Use: marijuana, methamphetamine Lives In: Home Occupation: unemployed Review of Systems Gastrointestinal: Reports: abdominal pain, nausea, vomiting Physical Exam Vital Signs: Temperature: 98.2, Source: Temporal, Heart Rate: 122, Respiratory Rate: 18, BP: 129/78, Pulse Oximetry: 96, Weight: 56.300 Oxygen Flow Rate: 0 Physical Exam General: This is an ill-appearing young female, writhing around in bed with her legs up in the air, mother at bedside HEENT: Atraumatic, oropharynx is dry with cracked lips Heart: Tachycardic, appears regular Lungs: Intermittently hyperventilating, intermittently breathing at a regular rate, normal oxygen saturation on room air Abdomen: Soft, nondistended thin abdomen. She does react to palpation in all quadrants by moaning in pain. She does not clearly have peritoneal findings. Back: Mild generalized tenderness on palpation of the muscles of the back on the right side with no overlying rashes. Possible right CVA tenderness to percussion Neuro: Alert and oriented Psychiatric: Anxious, in mild distress Progress Results/Orders Results/Orders Orders - MIREYA HENRY MD Urinalysis, Cult If Indicated (02/06/25 21:22) Hcg, Ur Ql (02/06/25 21:22) Cbc/Diff (02/06/25 21:22) BMP (02/06/25 21:22) Lipase (02/06/25 21:22) CMP (02/06/25 21:22) Vital Signs 02/06/25 21:19 Temp 98.2 Pulse 122 Resp 18 B/P (MAP) 129/78 Pulse Ox 96 O2 Flow Rate 0 Re-Evaluation Re-Evaluation : Progress Re-evaluation: The patient appears more comfortable, but continues to report abdominal pain. I had explained the results of her testing and plan for admission. Consults/PCP Consults/PCP : Additional Comment Consult: I spoke to the internal medicine service, for admission in the hospital Medical Decision Making Additional info obtained from: old records Findings I reviewed the patient's past admission, where she had cyclic vomiting and possible inflammatory changes to her intestines. Additional Comments Differential includes gastritis, colitis, cyclic vomiting, cannabis hyperemesis, dehydration, electrolyte derangement, UTI, , bowel obstruction Assessment The patient presents with generalized abdominal pain, nausea and vomiting, with a similar presentation to multiple past episodes of cyclic vomiting. The patient and her mother deny any new or different symptoms compared to previous episodes. Her workup shows a significant acute kidney injury consistent with dehydration. She was given aggressive IV fluid hydration. She was given pain and nausea medication with gradual improvement. Urinalysis questionable for infection. Per chart review she has a history of a bladder fistula, which could be source of contamination or infection. I spoke to the medicine team for admission, and during this discussion we decided to hold on antibiotics until they evaluate the patient. I did consider abdominal imaging, but given that the patient has had multiple CT scans on my chart review that generally did not show any dangerous findings, and given that she denies any new or different symptoms compared to previous episodes, I feel that symptomatic treatment is adequate at this time. Departure Impression: Primary Impression: Cyclic vomiting syndrome Additional Impressions: Generalized abdominal pain Acute kidney injury Referrals: NO PRIMARY CARE PROVIDER (PCP) Signature Scribe Signature: na Attestation: MIREYA Love MD Feb 06, 2025 21:43
[2025-02-06 21:53] LABS: BASOPHILS # (AUTO) 0.1 X10'3 (0-0.2); BASOPHILS % (AUTO) 0.5 % (0-1); EOSINOPHILS # (AUTO) 0.1 X10'3 (0-0.9); EOSINOPHILS % (AUTO) 0.8 % (0-6); HEMOGLOBIN 16.2 g/dl (12.0-16.0); LYMPHOCYTES # (AUTO) 2.8 X10'3 (1.1-4.8); MEAN CORPUSCULAR HEMOGLOBIN 30.7 PG (27.0-31.0); MEAN CORPUSCULAR HGB CONC 33.6 g/dL (33.0-36.5); MEAN CORPUSCULAR VOLUME 91.3 FL (78-98); MEAN PLATELET VOLUME 9.9 FL (7.4-10.4); MONOCYTES # (AUTO) 1.8 X10'3 (0-0.9); MONOCYTES % (AUTO) 13.6 % (2-12); NEUTROPHILS # (AUTO) 8.5 X10'3 (1.8-7.7); NEUTROPHILS % (AUTO) 64.1 % (42-75); PLATELET COUNT 288 X10'3 (140-440); RED BLOOD COUNT 5.26 X10'6 (4.20-5.60); RED CELL DISTRIBUTION WIDTH 15.9 % (11.5-14.5); WHITE BLOOD COUNT 13.3 X10'3 (4.5-11.0)
[2025-02-06 21:58] LABS: URINE HCG NEGATIVE (NEG)
[2025-02-06 22:01] LABS: BILIRUBIN,URINE MODERATE (Neg); CLARITY,URINE CLOUDY (Clear); COLOR,URINE YELLOW (Yellow); GLUCOSE, URINE NEGATIVE (Neg); KETONES,URINE TRACE mg/dl (Neg); LEUKOCYTE ESTERASE ,URINE SMALL (Neg); NITRITES, URINE NEGATIVE (Neg); OCCULT BLOOD,URINE LARGE (Neg); PH,URINE 5.5 (4.8-8.0); PROTEIN,URINE 100 mg/dl (Neg); UROBILINOGEN,URINE 0.2 E.U/dL (0.2-1.0)
[2025-02-06 22:09] LABS: UA COLLECTION TYPE CLN CATCH MIDSTREAM
[2025-02-06 22:11] LABS: ALANINE AMINOTRANSFERASE 28 U/L (12-78); ALBUMIN 4.7 G/DL (3.4-5.0); ALBUMIN/GLOBULIN RATIO 1.1 (1.1-1.5); ALKALINE PHOSPHATASE 92 IU/L (46-116); ANION GAP 16 (8-16); ASPARTATE AMINO TRANSFERASE 18 U/L (10-37); BILIRUBIN,TOTAL 0.7 MG/DL (0.1-1.0); BLOOD UREA NITROGEN 30 MG/DL (7-18); BUN/CREATININE RATIO 12.9 (10.0-20.0); CALCIUM 9.4 MG/DL (8.5-10.1); CHLORIDE 97 MMOL/L (99-107); CREATININE 2.32 MG/DL (0.40-0.90); GLUCOSE 128 MG/DL (70-104); LIPASE 55 U/L (16-77); POTASSIUM 3.5 MMOL/L (3.5-5.1); SODIUM 135 MMOL/L (135-145); TOTAL CARBON DIOXIDE 21.8 MMOL/L (24-32); eCRCL 30 ML/MIN; eGFR 29 ML/MIN
[2025-02-06 22:11] LABS: BACTERIA,URINE 2+ /HPF (Neg); MUCUS STRANDS FEW /LPF (Neg); RBC,URINE 50-100 /HPF (0-2); SQUAMOUS EPITHELIAL CELL,UR FEW /LPF (FEW); WBC,URINE 20-30 /HPF (0-4)
[2025-02-06] MEDS: ondansetron/PF 4mg/2ml inj IV ONE (22:15)
[2025-02-06] MEDS: haloperidol lactate 5mg/ml inj IM ONE (22:15)
[2025-02-06] MEDS: diphenhydrAMINE 50 mg/ml inj IV ONE (22:15)
[2025-02-06] MEDS: normal saline 1000ml 1,000 ML IV ONE ×2 (22:15→23:10)
[2025-02-06] MEDS: ketorolac trometh 15mg/ml vial 15 MG/ML ML IV ONE (22:15)
[2025-02-06] MEDS ORDERED: NO HOME MEDS (23:07)
[2025-02-06] MEDS: morphine 4 MG/ML inj SYRINge IV ONE (23:10)
[2025-02-06] MEDS ORDERED: magnesium Cl slow-release 64mg tablet PO PRN (23:35)
[2025-02-06] MEDS ORDERED: mag hydrox/Alum hydrox/simeth 30ml oral suspension PO PRN (23:35)
[2025-02-06] MEDS ORDERED: magnesium sulf-water 2g/50mL 50 ML IV PRN (23:35)
[2025-02-06] MEDS ORDERED: morphine 2 MG/ML inj. syringe IV PRN (23:35)
[2025-02-06] MEDS ORDERED: acetaminophen 325mg tablet PO PRN (23:35)
[2025-02-06] MEDS ORDERED: magnesium sulf-water 4G/100mL 100 ML IV PRN (23:35)
[2025-02-06] MEDS ORDERED: potassium Cl 40MEQ/1/2NS 520ml 520 ML IV PRN (23:35)
[2025-02-06] MEDS ORDERED: potassium Cl 20 mEq SR tablet PO PRN (23:35)
[2025-02-07] VITALS (8 sets, daily range): BP systolic 89–122; BP diastolic 52–75; PULSE 59–99; RESP 14–18; TEMP 97.2–98.8; O2SAT 98–100
[2025-02-07] MEDS: normal saline 1000ml 1,000 ML IV SCH (00:27)
[2025-02-07 00:29] LABS: CHLORIDE 105 MMOL/L (99-107); MAGNESIUM 2.8 MG/DL (1.5-2.4); POTASSIUM 3.8 MMOL/L (3.5-5.1); SODIUM 140 MMOL/L (135-145)
[2025-02-07] MEDS: piperacillin/tazo 4.5gm/100ml 100 ML IV SCH (00:29)
[2025-02-07 00:45] LABS: ALANINE AMINOTRANSFERASE 26 U/L (12-78); ALBUMIN 3.6 G/DL (3.4-5.0); ALBUMIN/GLOBULIN RATIO 1.1 (1.1-1.5); ALKALINE PHOSPHATASE 69 IU/L (46-116); ANION GAP 14 (8-16); ASPARTATE AMINO TRANSFERASE 24 U/L (10-37); BILIRUBIN,TOTAL 0.5 MG/DL (0.1-1.0); BLOOD UREA NITROGEN 28 MG/DL (7-18); BUN/CREATININE RATIO 17.5 (10.0-20.0); CALCIUM 8.1 MG/DL (8.5-10.1); GLUCOSE 121 MG/DL (70-104); TOTAL CARBON DIOXIDE 20.7 MMOL/L (24-32); TOTAL PROTEIN 6.8 G/DL (6.4-8.2); eCRCL 43 ML/MIN; eGFR 44 ML/MIN
[2025-02-07 00:47] LABS: BASOPHILS % (AUTO) 0.2 % (0-1); EOSINOPHILS % (AUTO) 0.2 % (0-6); HEMATOCRIT 39.8 % (35.0-45.0); HEMOGLOBIN 13.3 g/dl (12.0-16.0); LYMPHOCYTES # (AUTO) 0.8 X10'3 (1.1-4.8); LYMPHOCYTES % (AUTO) 6.5 % (21-51); MEAN CORPUSCULAR HEMOGLOBIN 30.3 PG (27.0-31.0); MEAN CORPUSCULAR HGB CONC 33.5 g/dL (33.0-36.5); MEAN CORPUSCULAR VOLUME 90.4 FL (78-98); MEAN PLATELET VOLUME 9.3 FL (7.4-10.4); MONOCYTES # (AUTO) 0.9 X10'3 (0-0.9); MONOCYTES % (AUTO) 7.7 % (2-12); NEUTROPHILS % (AUTO) 85.4 % (42-75); PLATELET COUNT 181 X10'3 (140-440); RED CELL DISTRIBUTION WIDTH 15.6 % (11.5-14.5); WHITE BLOOD COUNT 11.7 X10'3 (4.5-11.0)
--- NOTE | 2025-02-07 01:00 | HISTORY AND PHYSICAL-Residence ---
History & Physical Providers to CC Resident Creating Document: CATA CUMMINGSAURELIANO URIARTE CC: FAMILIA DIANA Jr. 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 Patient reports that she started with abdominal pain a 2:00 a.m. yesterday, pain started suddenly, quantified at 6 or 7/10 in intensity, located in right flank, nonradiating, accompanied by nausea and is several episodes of vomiting. In addition, she reports that today she started experiencing gas coming out of her vagina. She denies fever, chills, painful or burning urination, frequency, and vaginal discharge. She does report she has chronic abdominal pain, and she was recently in this hospital with similar symptoms and was diagnosed with enteritis at the time. She is also being followed by a clinical services professional for possible enterovesical fistula and she is to be evaluated by a surgeon. Patient is being followed at [facility]. Allergies: Coded Allergies: No Known Allergies (Unverified , 12/20/24) Home Medications Home Medications Active Reported No Home Medications (Home Med List) Each Past Medical History Past Medical History Possible enterovesical fistula under investigation and diverticulosis Past Surgical History Surgical History Comment None Family History Family History: Patient reports no known family medical history. Past Social History Smoking: Non-Smoker Alcohol Use: Sober (Patient has been sober for 4 months) Drug Use: Marijuana Lives with: Family Lives In: Home Occupation: unemployed ROS ROS All systems were reviewed except for pertinent positives mentioned in HPI Constitutional: Denies: no symptoms reported, see HPI, chills, diaphoresis, fever, malaise, weakness, other Eyes: Denies: no symptoms reported, see HPI, pain, discharge, blurred vision, double vision, itching, photophobia, redness, tearing, other ENT: Denies: no symptoms reported, see HPI, ear pain, ear bleeding, ear discharge, hearing loss, ear ringing, nose pain, nose bleeding, nose congestion, nose discharge, throat pain, throat swelling, voice change, mouth pain, mouth bleeding, mouth swelling, other Respiratory: Denies: no symptoms reported, see HPI, cough, orthopnea, shortness of breath, SOB with exertion, SOB at rest, stridor, wheezing, hemoptysis, pain with breathing, other Cardiovascular: Denies: no symptoms reported, see HPI, chest pain, left arm pain, diaphoresis, lightheadedness, syncope, edema, palpitations, irregular heart rate, other Gastrointestinal: Reports: see HPI Genitourinary: Reports: see HPI Female Genitalia: Reports: see HPI Neurological: Denies: no symptoms reported, see HPI, speech problem, headache, dizziness, fainting, tingling, left sided numbness, right sided numbness, left sided weakness, right sided weakness, problems walking, unable to move lower ext, unable to move upper ext, petit mal seizures, tonic-clonic seizures, cognitive dysfunction, other Musculoskeletal: Denies: no symptoms reported, see HPI, pain, swelling, back pain, gout, joint pain, joint swelling, muscle pain, muscle swelling, muscle stiffness, neck pain, other Integumentary: Denies: no symptoms reported, see HPI, rash, itching, lesions, lumps, bruise(s), wound(s), laceration(s), dryness, change in color, other Allergic/Immunologic: Denies: no symptoms reported, see HPI, hives, itching, frequent infections, difficulty healing, other Hematologic/Lymphatic: Denies: no symptoms reported, see HPI, anemia, blood clots, easy bleeding, easy bruising, swollen glands, other Endocrine: Denies: no symptoms reported, see HPI, excessive sweating, flushing, intolerance to cold, intolerance to heat, increased hunger, increased thrist, increased urine, unexplained weight gain, unexplained weight loss, other Psychiatric: Denies: no symptoms reported, see HPI, depression, anxiety, sleeplessness, hopeless, suicidal, hallucinations, other Exam Vitals: Vital Signs Date Time Temp Pulse Resp B/P (MAP) Pulse Ox O2 Delivery O2 Flow Rate FiO2 02/07/25 00:07 98.2 98 15 123/91 (102) 100 0 General: General: awake, alert oriented to place, time, and person HEENT: marked pallor present, no icterus, dry mucous membranes Neck: No masses and tenderness Resp: Unlabored. Lungs clear to auscultation bilaterally. Heart: Regular Rate and rhythm, normal S1 and S2 without murmur, rub or gallop Abdomen: Soft, right flank and costovertebral fossa tenderness, no organomegaly, no guarding and rigidity, bowel sounds present Neuro: No weakness in the upper and lower limb muscles, power of the muscles 5/5 bilateral upper and lower muscles, knee reflex present bilaterally. Cranial nerves intact Extremities: No cyanosis,clubbing or edema Skin: Warm and Dry. 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 Admitted for management of abdominal pain possibly secondary to UTI in the setting of possible enterovesical fistula. Abdominal pain Sepsis likely 2/2 to UTI in the setting of possible enterovaginal fistula Possible pyelonephritis JOSE FRANCISCO, likely prerenal secondary to vasomotor nephropathy Possible enterovaginal fistula Patients abdominal pain improved at the time of my interview but still present Significant pain in costovertebral fossa WBC 13 Positive UA. Pending culture and spot tests Initial creatinine 2.3 Ordered lactic acid and procalcitonin Start IV NS at 150cc hr. Received 2L bolus in ED Start Zosyn Blood cultures ordered Pending CT abdomen/pelvis Will obtain records from [facility] Code Status: Full code DVT prophylaxis: Heparin Nutrition: Regular diet Prognosis: Guarded Disposition: Admit to surgical unit. 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 Attestation of HP only, care immediately directed to hospitalist team - UA + suspect Pylonephritis - Abx Rocephin x 5-7 days - Ct a/p - Cedric for dvt Patient seen through remote audiovisual assessment through HIPAA compliant setup. All labs, flowsheets, and images reviewed. Date of Service: Feb 07, 2025 Billing Provider: FAMILIA DIANA Jr., LEONARDO LUIS Feb 07, 2025 01:00 FAMILIA DIANA Jr., DO Feb 07, 2025 04:07
[2025-02-07] MEDS: morphine 2 MG/ML inj. syringe IV PRN (01:31)
[2025-02-07] MEDS: ondansetron/PF 4mg/2ml inj IV PRN (04:44)
[2025-02-07] MEDS: K and/or MAG REPLACEMENT MC SCH (08:00)
[2025-02-07] MEDS: heparin, porcine 5000 units/ml vial SQ SCH (08:21)
[2025-02-07] MEDS: docusate sod 100mg capsule PO SCH (08:21)
--- NOTE | 2025-02-07 10:37 | RADIOLOGY REPORT ---
CT ABDOMEN AND PELVIS WITHOUT CONTRAST CLINICAL HISTORY: Possible pyelonephritis TECHNIQUE: Multiple contiguous axial images of the abdomen and pelvis without intravenous contrast. T he images were reformatted degenerate coronal and sagittal reconstructions. All CT scans at this medical facility are performed using dose modulation techniques as appropriate t o a performed exam including the following:Automated exposure control was utilized; adjustment of the MA and/or KV according to patient size; and use of iterative reconstruction technique. Radiation Dose Information: CT Dose: CTDI volume is 7 mGy. Dose-length product is 368 mGy*cm Comparison: 12/20/2024 FINDINGS: Evaluation of the abdomen and pelvis is limited without intravenous contrast. There is no evidence of nephrolithiasis or hydronephrosis. There is no evidence of a ureteral calculu s or hydroureter. The liver, gallbladder, pancreas, adrenal glands, and spleen appear within normal limits. There is no gross evidence of abdominal lymphadenopathy. There is no free fluid or free air. The stomach grossly appears within normal limits. The small and large bowel loops demonstrate normal caliber. A normal appearing appendix is seen in the right lower quadrant abdomen. There are few scatt ered diverticula in the distal colon without evidence of acute diverticulitis. The abdominal aorta and IVC appear within normal limits. The bladder appears unremarkable. Uterus appears within normal limits. There is a 3.6 cm cystic stru cture in the right adnexa likely an ovarian cyst.. There is no evidence of a pelvic mass or free flu id collection. The lung bases are clear. There is no acute osseous abnormality. There is L5 spondylolysis with slight grade 1 anterolisthesis at L5-S1. IMPRESSION: 1. There is no acute process in the abdomen and pelvis. 2. 3.6 cm cystic structure in the right adnexa likely an ovarian cyst. HS:Y
--- NOTE | 2025-02-07 19:22 | PROGRESS NOTE ---
Daily Progress Note Providers to CC ~ Antibiotic Timeout Antibiotic Ordered?: Yes Subjective Patient was seen in her room she mentioned about subjective pain over right lower abdomen. She feels that everybody's writing wrong about her in the chart and does not feel that her cannabis is related anything with the bad kidney function. She gave me some vague description of entero vaginal fistula diagnosis but I was not able to see any records in hospital charts. Patient is able to eat her food without any difficulty. I requested nursing staff [facility] to get her old records from [facility] regarding entero vaginal fistula diagnosis. She also mentioned that she has outpatient follow-up with the specialist doctor for entero vaginal. Objective Vital Signs Date Time Temp Pulse Resp B/P (MAP) Pulse Ox O2 Delivery O2 Flow Rate FiO2 02/07/25 16:40 15 02/07/25 10:00 98.6 67 122/74 (90) 99 Room Air 02/07/25 08:[address] ABDOMEN PELVIS-IMPRESSION: 1. There is no acute process in the abdomen and pelvis. 2. 3.6 cm cystic structure in the right adnexa likely an ovarian cyst. Result Diagram: 02/07/25 0034 02/07/25 0009 General-patient not in any acute distress, alert awake , ill-appearing HEENT-atraumatic normocephalic, neck supple without elevated JVD, no thyromegaly or carotid bruit. No lymphadenopathy bilaterally. Eyes-no icterus or pallor seen in eyes Chest-clear to auscultation bilaterally, breathing nonlabored no tachypnea, no wheezing, no crepitation, no crackles. 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 Admitted for management of abdominal pain possibly secondary to UTI in the setting of possible enterovesical fistula." Abdominal pain Sepsis likely 2/2 to UTI Possible pyelonephritis JOSE FRANCISCO, likely prerenal secondary to vasomotor nephropathy h/o enterovaginal fistula WBC improved Positive UA. blood Culture and urine culture so far negative Initial creatinine 2.3 normal lactic acid and procalcitonin Start IV NS at 150cc hr. Received 2L bolus in ED Stopped Zosyn , started ciprofloxacin and Flagyl today Code Status: Full code DVT prophylaxis: Heparin Nutrition: Regular diet Prognosis: Guarded Disposition: Admit to surgical unit. Continue medical management. We will continue to follow patient in AM . Date of Service: Feb 07, 2025 Billing Provider: MARKELL SNEED MD Common Visit Codes: [id number] INP/OBS CARE(HIGH) MARKELL SNEED MD Feb 07, 2025 19:21
[2025-02-07] MEDS: metroNIDAZOLE-Flagyl 500mg/NS 100 ML IV SCH (21:30)
[2025-02-07] MEDS: magnesium hydroxide 30ml (MOM) UD suspension PO PRN (21:45)
[2025-02-07] MEDS: ciprofloxacin lact 400MG/200ML 200 ML IV SCH (22:59)
[2025-02-08 04:16] LABS: BASOPHILS % (AUTO) 0.5 % (0-1); EOSINOPHILS % (AUTO) 0.4 % (0-6); HEMATOCRIT 34.2 % (35.0-45.0); HEMOGLOBIN 11.6 g/dl (12.0-16.0); LYMPHOCYTES # (AUTO) 1.8 X10'3 (1.1-4.8); MEAN CORPUSCULAR HEMOGLOBIN 30.9 PG (27.0-31.0); MEAN CORPUSCULAR VOLUME 90.8 FL (78-98); MEAN PLATELET VOLUME 9.8 FL (7.4-10.4); MONOCYTES # (AUTO) 0.7 X10'3 (0-0.9); NEUTROPHILS # (AUTO) 4.9 X10'3 (1.8-7.7); NEUTROPHILS % (AUTO) 66.1 % (42-75); PLATELET COUNT 159 X10'3 (140-440); RED BLOOD COUNT 3.77 X10'6 (4.20-5.60); RED CELL DISTRIBUTION WIDTH 15.5 % (11.5-14.5); WHITE BLOOD COUNT 7.3 X10'3 (4.5-11.0)
[2025-02-08 04:25] LABS: ALANINE AMINOTRANSFERASE 23 U/L (12-78); ALBUMIN/GLOBULIN RATIO 1.1 (1.1-1.5); ALKALINE PHOSPHATASE 56 IU/L (46-116); ANION GAP 6 (8-16); ASPARTATE AMINO TRANSFERASE 23 U/L (10-37); BILIRUBIN,TOTAL 0.5 MG/DL (0.1-1.0); BLOOD UREA NITROGEN 7 MG/DL (7-18); BUN/CREATININE RATIO 11.7 (10.0-20.0); CALCIUM 8.1 MG/DL (8.5-10.1); CHLORIDE 107 MMOL/L (99-107); GLUCOSE 99 MG/DL (70-104); MAGNESIUM 2.1 MG/DL (1.5-2.4); POTASSIUM 3.4 MMOL/L (3.5-5.1); SODIUM 138 MMOL/L (135-145); TOTAL CARBON DIOXIDE 24.9 MMOL/L (24-32); TOTAL PROTEIN 5.8 G/DL (6.4-8.2); eCRCL 115 ML/MIN; eGFR > 90 ML/MIN
[2025-02-08 06:47] VITALS: BP 114/79; PULSE 82; RESP 15; TEMP 97.8; O2SAT 98
[2025-02-08 08:00] VITALS: RESP 16; O2SAT 98
[2025-02-08 10:00] VITALS: BP 100/53; PULSE 56; RESP 16; TEMP 97.9; O2SAT 98
[2025-02-08] MEDS ORDERED: METR-159 PO (11:12)
[2025-02-08] MEDS ORDERED: CIPR-259 PO (11:12)
[2025-02-08] MEDS: potassium Cl 20 mEq SR tablet PO PRN (11:51)
--- NOTE | 2025-02-08 18:33 | DISCHARGE SUMMARY ---
Discharge Summary Providers to CC ~ Discharge Summary Admission Diagnosis: JOSE FRANCISCO Hospital Course DATE OF ADMISSION: February 06, 2025 DATE OF DISCHARGE: February 08, 2025 CBC testing done on February 08, 2025 WBC 7.3 hemoglobin 11.6 hematocrit 34.2 platelet count 159. Serum chemistry done on February 08, 2025 sodium 138 potassium 3.4 creatinine 0.60 GFR greater than 90. Procalcitonin 0.05 lactic acid 0.6. Blood culture showed no growth after one day urine culture showed mixed amandeep. CT ABDOMEN PELVIS-IMPRESSION: 1. There is no acute process in the abdomen and pelvis. 2. 3.6 cm cystic structure in the right adnexa likely an ovarian cyst. Discharge Diagnosis\\Comment: Abdominal pain unspecified likely secondary to cannabis use Possible acute UTI JOSE FRANCISCO, likely prerenal secondary to vasomotor nephropathy h/o enterovaginal fistula Operations\\Procedures: None Consultants: None Complications: None Condition on DC: Stable New Medications: Ciprofloxacin HCl (Cipro) 500 Mg Tablet 1 TAB PO Q12H for 5 Days, #10 TAB Metronidazole* (Flagyl*) 500 Mg Tablet 1 TAB PO BID for 5 Days, #10 TAB Discontinued Medications: Home Med List (No Home Medications) Each Discharge Summary: As per admitting provider's note" Patient is a 34-year-old female with past medical history of 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 Admitted for management of abdominal pain possibly secondary to UTI in the setting of possible enterovesical fistula." Hospitalization patient was treated for Abdominal pain unspecified likely secondary to cannabis use Possible acute UTI JOSE FRANCISCO, likely prerenal secondary to vasomotor nephropathy h/o enterovaginal fistula WBC improved Positive UA. blood Culture and urine culture so far negative Initial creatinine 2.3 which improved and back to normal 0.60 GFR greater than 90 normal lactic acid and procalcitonin Start IV NS at 150cc hr. Received 2L bolus in ED Stopped Zosyn , started ciprofloxacin and Flagyl and patient is discharged on p.o. antibiotics Patient was also strongly advised to stop cannabis and risks explained to the patient . She also mentioned that she has outpatient follow-up with the specialist doctor for entero vaginal.She gave me some vague description of entero vaginal fistula diagnosis but I was not able to see any records in hospital charts. I requested nursing staff [facility] to get her old records from [facility] regarding entero vaginal fistula diagnosis. Patient is able to eat her food without any difficulty. Patient was clinically feeling much b clint. She has been afebrile and getting discharged home in stable condition. Patient is seen and examined on the day of discharge and discharge instructions provided to the patient. All questions and concerns answered to the best of my professional medical knowledge. Follow with PCP , Other specialist doctors in 1- 2 weeks. Please avoid all recreational drugs . Patient is strongly advised to increase oral fluid more than 1500 mL per day. General-patient not in any acute distress, alert awake , ill-appearing HEENT-atraumatic normocephalic, neck supple without elevated JVD, no thyromegaly or carotid bruit. No lymphadenopathy bilaterally. Eyes-no icterus or pallor seen in eyes Chest-clear to auscultation bilaterally, breathing nonlabored no tachypnea, no wheezing, no crepitation, no crackles. Heart-S1-S2 normal, regular heart rate no murmur Abdomen bowel sounds positive on auscultation, soft nondistended no guarding, no rigidity, no tenderness present over right lower abdomen Skin no active skin rash Neurology-grossly intact, nonfocal alert awake oriented Extremity- no pedal edema able to move all 4 extremities Psychiatry - patient is not confused or agitated cooperated during physical examination *Problems/Diagnosis: (1) Acute renal failure Total Time Spent on D/C: > 30 Minutes Date of Service: Feb 08, 2025 Billing Provider: MARKELL SNEED MD Common Visit Codes: 81232-XFU/OBS DISCH DAY >30min MARKELL SNEED MD Feb 08, 2025 18:32
== END 2025-02-08 12:05 | disposition home or self-care (01) | DRG 720 ==
LOC: ER 21:00 → ED HOLD 23:34 → ORTHO 4S 02-07 00:40
PROVIDERS: ADMIT Internal Medicine Critical Care Medicine; ATTEND Internal Medicine
DX: A41.9 Sepsis, unspecified organism (principal); N17.0 Acute kidney failure with tubular necrosis; F32.A Depression, unspecified; N39.0 Urinary tract infection, site not specified; R10.84 Generalized abdominal pain; F12.90 Cannabis use, unspecified, uncomplicated; T40.715A Adverse effect of cannabis, initial encounter; Y92.89 Other specified places as the place of occurrence of the external cause
CPT/HCPCS: 36415; 74176; 80053; 81001; 81025; 83605; 83690; 83735; 84145; 85025; 87040; 87081; 87088; 96361; 96372; 96374; 96375; 99285; G0378; J0744; J1200; J1630; J1644; J1885; J2270; J2405; J2543; J3490; J7030

== ENCOUNTER 2025-06-23 19:30 | Emergency (ER) | payer MEDICAID ==
[~2025-06-23] VITALS: Ht 170.2 cm; Wt 52.0 kg
[2025-06-23 19:48] VITALS: BP 108/71; PULSE 112; RESP 15; TEMP 97.6; O2SAT 99
[2025-06-23 20:24] LABS: MEAN PLATELET VOLUME 10.0 FL (7.4-10.4); RED CELL DISTRIBUTION WIDTH 16.8 % (11.5-14.5)
[2025-06-23 20:41] LABS: LEUKOCYTE ESTERASE ,URINE NEGATIVE (Neg); NITRITES, URINE NEGATIVE (Neg); OCCULT BLOOD,URINE NEGATIVE (Neg)
[2025-06-23 20:43] LABS: UA COLLECTION TYPE CLN CATCH MIDSTREAM
[2025-06-23 20:43] LABS: CREATININE 0.65 MG/DL (0.40-0.90); TOTAL CARBON DIOXIDE 25.1 MMOL/L (24-32); eCRCL 98 ML/MIN; eGFR > 90 ML/MIN
== END 2025-06-23 22:40 | disposition left against medical advice (07) ==
LOC: ER 19:30
DX: R10.9 Unspecified abdominal pain (principal)
CPT/HCPCS: 36415; 80053; 81003; 84702; 85025

== ENCOUNTER 2025-06-30 03:34 | Emergency (ER) | payer MEDICAID ==
[~2025-06-30] VITALS: Ht 170.2 cm; Wt 59.4 kg
[2025-06-30 03:36] VITALS: TEMP 97.9
--- NOTE | 2025-06-30 03:55 | Physician Documentation ---
History of Present Illness ~ Chief Complaint: Abdominal Pain w/vomiting Stated Complaint: FLANK PAIN Time Seen by MD: 03:46 Primary Medical Doctor: Lavell LUA Patient presents to the emergency room for abdominal pain and vomiting. She is eight weeks . Prior history is complicated by cyclic vomiting syndrome as well as endometriosis. She states that it feels like everything is hitting her at once. Took Tylenol a proximally 12 hours ago and some Reglan. She tried calling her OBGYN and left a message. She denies any bleeding or fevers. Medication Reconciliation Allergies: Coded Allergies: No Known Allergies (Unverified , 12/20/24) Scheduled Ondansetron 8mg ODT (Ondansetron Odt), 1 TAB PO Q6H Past Medical History Past Medical History: *GI/HEPATOBILIARY*, Diverticulosis, Depression Past Surgical History: no surgical history Patient History: Patient reports no known family medical history. Alcohol Use: Sober Drug Use: marijuana Lives with: Family Lives In: Home Occupation: unemployed Review of Systems ROS All review of systems negative except as per HPI Physical Exam Vital Signs: Temperature: 97.9, Heart Rate: 94, Respiratory Rate: 20, BP: 121/78, Pulse Oximetry: 99, Weight: 59.400 Oxygen Flow Rate: 0 Physical Exam General: Patient is awake, alert, oriented x4 in no acute distress and well appearing.~ Head: Normocephalic and atraumatic. Eyes: Conjunctival normal. EOMI. PERRL. ENT: Mucous membranes moist. Neck: Supple, trachea is midline. Chest: Clear to auscultation bilaterally without rales, rhonchi, or wheezes. There is no accessory muscle use or retractions. Cardiac: RRR without murmurs, gallops, or rubs. Abd: Soft, nondistended, nontender, with normoactive bowel sounds. No guarding, rebound, or rigidity. Progress Progress Note Patient is seen comfortably walking around emergency room Results/Orders Results/Orders Orders - SYD MAZARIEGOS MD Drug Screen, Urine (06/30/25 04:03) Normal Saline 1000ml (0.9% Sodium Chlori (06/30/25 04:45) Ua W/Microscopic, Cult If Ind (06/30/25 04:46) Completed Orders - SYD MAZARIEGOS MD Cbc/Diff (06/30/25 03:55) Lipase (06/30/25 03:55) Hcg, Ur Ql (06/30/25 03:55) CMP (06/30/25 03:55) Procalcitonin (06/30/25 03:55) Ondansetron Inj. (Zofran 4mg/2ml Vial) (06/30/25 04:05) Acetaminophen 1,000mg/100ml Iv (Ofirmev (06/30/25 04:05) Metoclopramide Inj (Reglan Inj) (06/30/25 04:45) Diphenhydramine Inj (Benadryl Inj.) (06/30/25 04:45) Medications Received in ER Medications (Trade) Dose Ordered Sig/Griffin Route PRN Reason Start Time Stop Time Status Last Admin Dose Admin (Zofran 4mg/2ml vial) 8 mg ONCE ONCE IV 06/30/25 04:05 06/30/25 04:06 DC 06/30/25 04:20 8 MG Acetaminophen 100 ml @ 400 mls/hr ONCE ONCE IV 06/30/25 04:05 06/30/25 04:19 DC 06/30/25 04:20 400 MLS/HR (Reglan inj) 10 mg ONCE ONCE IV 06/30/25 04:45 06/30/25 04:46 DC 06/30/25 04:55 10 MG (Benadryl inj.) 25 mg ONCE ONCE IV 06/30/25 04:45 06/30/25 04:46 DC 06/30/25 04:55 25 MG Sodium Chloride 1,000 ml @ 1,000 mls/hr ONCE ONCE IV 06/30/25 04:45 06/30/25 05:44 06/30/25 04:55 1,000 MLS/HR Vital Signs 06/30/25 06/30/25 06/30/25 06/30/25 03:36 04:01 04:15 04:58 Temp 97.9 Pulse 94 76 116 Resp 20 16 16 18 B/P (MAP) 121/78 104/67 (79) 116/94 (101) Pulse Ox 99 96 95 O2 Flow Rate 0 0 Laboratory Tests Test 06/30/25 03:53 06/30/25 04:46 White Blood Count 11.8 H Red Blood Count 4.20 Hemoglobin 12.9 Hematocrit 39.0 Mean Corpuscular Volume 92.8 Mean Corpuscular Hemoglobin 30.7 Mean Corpuscular Hemoglobin Concent 33.1 Red Cell Distribution Width 16.5 H Platelet Count 183 Mean Platelet Volume 9.5 Neutrophils (%) (Auto) 76.5 H Lymphocytes (%) (Auto) 13.5 L Monocytes (%) (Auto) 8.3 Eosinophils (%) (Auto) 1.4 Basophils (%) (Auto) 0.3 Neutrophils # (Auto) 9.0 H Lymphocytes # (Auto) 1.6 Monocytes # (Auto) 1.0 H Eosinophils # (Auto) 0.2 Basophils # (Auto) 0.0 CBC Comment Sodium Level 141 Potassium Level 3.4 L Chloride Level 107 Carbon Dioxide Level 23.5 L Anion Gap 11 Blood Urea Nitrogen 5 L Creatinine 0.57 Estimated GFR/1.73 m2 > 90 BUN/Creatinine Ratio 8.8 L Glucose Level 102 Calcium Level 9.1 Total Bilirubin 0.5 Aspartate Amino Transf (AST/SGOT) 17 Alanine Aminotransferase (ALT/SGPT) 16 Alkaline Phosphatase 60 Total Protein 7.3 Albumin 3.8 Globulin 3.5 Albumin/Globulin Ratio 1.1 Lipase 28 Procalcitonin < 0.05 Chemistry Comments Urine Specimen Description Voided Urine Color Yellow Urine Clarity Clear Urine pH 6.0 Urine Specific [place] >=1.030 Urine Protein Trace Urine Glucose (UA) Negative Urine Ketones 15 H Urine Occult Blood Negative Urine Nitrite Negative Urine Bilirubin Negative Urine Urobilinogen 0.2 Urine Leukocyte Esterase Negative Urine RBC None seen Urine WBC 0-4 Urine Squamous Epithelial Cells Many Urine Bacteria Few Urine Hyaline Casts 0-3 Urine Fine Granular Casts 0-3 Urine Mucus Moderate Urine Culture Indicated Not ind Volume Urine Centrifuged 10 ml Urine HCG, Qualitative Positive Urine Comment Drug Screen Comment Medical Decision Making Findings Patient presents to the emergency room with abdominal discomfort along with nausea. Differentials include but are not limited to hyperemesis, intra- abdominal infection, ectopic therefore emergent labs ordered. Labs reassuring. Very mild elevation of leukocytosis but negative procalcitonin and given the risks versus benefits of radiation exposure and I feel the risk of radiation exposure at this time outweighs any benefit. Consideration of ectopic but given three-week history of this pain I feel this is unlikely in his more likely secondary to discomfort of . No evidence of dehydration but she has received IV fluids. ER precautions discussed. Given risks of hyperemesis I believe the benefit of Zofran outweighs any risks Diff Dx Pain:Considerations: Include: -Complete, -Inevitable, -Missed, -Threatened, Abruptio placentae, Appendicitis, Bowel obstruction, Cholelithasis, Pancreatitis, Urinary tract infection, Urolithiasis Departure Disposition: HOME / SELF CARE / HOMELESS Impression: Primary Impression: Vomiting Additional Impression: Discomfort during Condition: Stable Discharge Instructions: Abdominal Pain During Referrals: NO PRIMARY CARE PROVIDER (PCP) Prescriptions Ondansetron 8mg ODT (Ondansetron Odt) 8 Mg Tab.rapdis 1 TAB PO Q6H for nausea/vomiting for 3 Days, #12 TAB 0 Refills Prov: SYD MAZARIEGOS MD 06/30/25 Signature Scribe Signature: No scribe Attestation: The note accurately reflects work and decisions made by me.Syd Mazariegos MD 06/30/25 04:56 SYD MAZARIEGOS MD Jun 30, 2025 03:55
[2025-06-30 04:06] LABS: MEAN PLATELET VOLUME 9.5 FL (7.4-10.4); RED CELL DISTRIBUTION WIDTH 16.5 % (11.5-14.5)
[2025-06-30 04:20] LABS: CREATININE 0.57 MG/DL (0.40-0.90); TOTAL CARBON DIOXIDE 23.5 MMOL/L (24-32); eCRCL 128 ML/MIN; eGFR > 90 ML/MIN
[2025-06-30] MEDS: acetaminophen 1,000mg/100ml IV 100 ML IV ONE (04:20)
[2025-06-30] MEDS: ondansetron/PF 4mg/2ml inj IV ONE (04:20)
[2025-06-30] MEDS: normal saline 1000ml 1,000 ML IV ONE (04:55)
[2025-06-30] MEDS: metoclopramide 5 mg/ml inj IV ONE (04:55)
[2025-06-30] MEDS ORDERED: ONDA-245 PO (04:55)
[2025-06-30 05:07] LABS: URINE HCG POSITIVE (NEG)
[2025-06-30 05:12] LABS: LEUKOCYTE ESTERASE ,URINE NEGATIVE (Neg); NITRITES, URINE NEGATIVE (Neg); OCCULT BLOOD,URINE NEGATIVE (Neg)
[2025-06-30 05:17] LABS: UA COLLECTION TYPE VOIDED
[2025-06-30 05:20] LABS: FINE GRANULAR CAST 0-3 /LPF (NEGATIVE); HYALINE CASTS 0-3 /LPF (NEGATIVE); MUCUS STRANDS MODERATE /LPF (Neg); SQUAMOUS EPITHELIAL CELL,UR MANY /LPF (FEW)
[2025-06-30 05:26] LABS: URINE AMPHETAMINE SCREEN NEGATIVE (Neg); URINE BARBITUATE SCREEN NEGATIVE (Neg); URINE BENZODIAZEPINES SCREEN NEGATIVE (Neg); URINE CANNABINOID SCREEN POSITIVE (Neg); URINE COCAINE SCREEN NEGATIVE (Neg); URINE METHADONE SCREEN NEGATIVE (Neg); URINE OPIATE SCREEN NEGATIVE (Neg); URINE PHENCYCLIDINE SCREEN NEGATIVE (Neg)
[2025-06-30 05:40] VITALS: BP 116/76; PULSE 105; RESP 18; O2SAT 95
== END 2025-06-30 06:05 | disposition home or self-care (01) ==
LOC: ER 03:35
DX: O26.891 Other specified pregnancy related conditions, first trimester (principal); O21.9 Vomiting of pregnancy, unspecified; O99.321 Drug use complicating pregnancy, first trimester; F12.90 Cannabis use, unspecified, uncomplicated; F32.A Depression, unspecified; Z79.899 Other long term (current) drug therapy; Z3A.08 8 weeks gestation of pregnancy
CPT/HCPCS: 36415; 80053; 80305; 81001; 81025; 83690; 84145; 85025; 96361; 96374; 96375; 99284; J0131; J1200; J2405; J2765; J7030